=== PATIENT | male | born 1940 | race Caucasian/White ===

== ENCOUNTER 2019-11-16 10:14 | Inpatient (IN) | payer OTHER, SELFPAY ==
[2019-11-16 10:15] VITALS: BP 136/67; PULSE 85; RESP 17; TEMP 36.8; O2SAT 96; BMI 28.7
--- NOTE | 2019-11-16 10:35 | XR_ITS ---
WS: [id number] PORTABLE CHEST HISTORY: cough/congestion COMPARISON: 12/08/2018 Subsegmental linear atelectasis in the RIGHT lower lobe. Slight volume loss in the RIGHT lung. Blunti ng of the RIGHT costophrenic angle is stable. LEFT lung is clear. Normal vasculature. No pleural effu josiah or pneumothorax. Cardiac size: Normal. Mediastinum/Aorta: Mild atherosclerosis aorta. No osseous abnormality seen. Prior median sternotomy. XR/XR chest 1V portable [id number] IMPRESSION: Subsegmental RIGHT lower lobe atelectasis.
--- NOTE | 2019-11-16 10:35 | CT_ITS ---
WS: [id number] CT HEAD NONCONTRAST HISTORY: trauma TECHNIQUE: Contiguous axial imaging performed through the brain in 2.5 mm imaging. Bone and soft tiss ue windows. Sagittal and coronal reformats reviewed. All CT scans at [facility] use at ast one of these dose optimization techniques: automated exposure control; mA and/or kV adjustment pe r patient size (includes targeted exams where dose is matched to clinical indication); or iterative r econstruction. DLP: 920.86 mGy.cm COMPARISON: 11/06/2018 No acute intracranial hemorrhage, midline shift or mass effect. Mild atrophy and mild chronic microvascular ischemic disease. Ventricles: Normal size with no hydrocephalus. No inferior displacement of cerebellar tonsils. Paranasal sinuses: As visualized are clear. Mastoid air cells: Well pneumatized. Calvarium and scalp: Skull is intact with no soft tissue edema or swelling. CT/CT head wo con* [id number] IMPRESSION: 1. No acute intracranial hemorrhage. 2. Mild atrophy and chronic microvascular ischemic disease. 3. No fracture.
--- NOTE | 2019-11-16 10:35 | W.ED.WEAKNES ---
Documented by User: ANNE Cummings 11/16/19 16:31 HPI - Weakness General: Chief complaint: Fever Stated complaint: WEAKNESS, ELEVATED TEMP Time Seen by Provider: 11/16/19 10:35 Source: patient and EMS Mode of arrival: EMS Limitations: no limitations History of Present Illness: HPI Narrative: Patient is an 78-year-old male who presents to ED today via EMS after family noticed increased weakness over the past week or so. They told EMS patient has had several falls over the past week. They also noted fevers however stated the maximum temp that patient had was 99.9. Upon arrival patient is pleasant. He is alert and oriented to name, , location, president. He does however seem to elicit some dementia-like symptoms often forgetting certain words. He overall has no physical complaints currently. He denies chest pains, difficulty breathing, shortness of breath. He states he is not getting dizzy or lightheaded prior to the falls. He tells me his past medical history consists of high blood pressure and a cardiac valve replacement. He cannot list his current medications. Spoke to son later during his visit who states he does have POA of patient. He states at 4:30am when he checked on him he seemed normal but then got a phone call later that day from home health stating patient was confused and talking out of his mind Associated symptoms: Reports fever(s) (family reports this; max temp 99.9); Denies chest pain, chills, dysuria, headache(s), nausea, syncope or vomiting Review of Systems General: Reports: 10 or more systems reviewed and unremarkable except in HPI and below Const: Reports: fever (family reports this; max temp 99.9); Denies: chills, body aches, fatigue, malaise or night sweats Eyes: Denies: change in vision, blurry vision or photophobia ENMT: Denies: painful swallowing Card: Denies: chest pain, palpitations, irregular heart rhythm, edema, swelling of feet/ankles, lightheadedness, syncope, pre-syncope, shortness of breath on exertion, shortness of breath when lying down or leg pain with exertion Resp: Denies: shortness of breath, productive cough, non-productive cough, pain on inspiration, coughing up blood or chest congestion GI: Denies: abdominal pain, nausea, vomiting or diarrhea : Denies: flank pain, difficulty urinating, painful urination, urinary frequency, urinary urgency or urinary hesitancy Musc: Denies: neck pain, back pain, extremity pain, extremity swelling, joint pain or joint swelling Skin/Breast: Denies: rash Neuro: Reports: difficulty walking (secondary to weakness ); Denies: headache, numbness in extremities, weakness in extremities, changes in sensation or dizziness PFSH ED PFSH: Medical History Aortic valve stenosis BPH (benign prostatic hyperplasia) CAD (coronary artery disease) Diastolic CHF HTN (hypertension) Surgical History Aortic valve replaced bovine History of appendectomy Family History (Updated 11/16/19 @ 16:48 by Jeanne Leung MD) Other CAD (coronary artery disease) Social History (Updated 11/16/19 @ 16:49 by Jeanne Leung MD) Smoking and tobacco status: never smoked Alcohol intake: never Substance/Drug Use: never Marital status: / Number of children: 3 service: Yes Physical Exam Const: COMMON NORMALS: no apparent distress, average body habitus, oriented x3, healthy appearing, alert and well nourished EXAM LIMITATIONS: altered mental status (maybe some mild dementia) ORIENTATION/CONSCIOUSNESS: Yes oriented to person, Yes oriented to place and Yes oriented to time HENMT: COMMON NORMALS: normocephalic, head/scalp atraumatic and EAC's normal HEAD & SCALP: normocephalic and atraumatic EXTERNAL AUDITORY CANAL: EAC's normal THROAT: posterior oropharynx normal Eye: COMMON NORMALS: PERRL, EOMs intact bilaterally and conjunctivae normal CONJUNCTIVA: Yes conjunctivae normal PUPIL: Yes PERRL Neck/C-Spine: COMMON NORMALS: full ROM, no lymphadenopathy and no meningeal signs Resp: COMMON NORMALS: normal respiratory effort and clear to auscultation bilaterally AUSCULTATION: clear to auscultation bilaterally Cardio: COMMON NORMALS: regular rate and regular rhythm RATE: regular rate RHYTHM: regular rhythm HEART SOUNDS: murmur GI: COMMON NORMALS: normal to inspection, nondistended, normoactive bowel sounds, soft to palpation, non-tender, no hepatosplenomegaly and no masses PALPATION: Yes soft and Yes no hepatosplenomegaly : COMMON NORMALS: Yes no CVA tenderness BLADDER/KIDNEY EXAM: Yes no CVA tenderness Back/Pelvis: COMMON NORMALS: no CVA tenderness, thoracic and lumbar spine normal to inspection and no thoracic nor lumbar tenderness Extremity: COMMON NORMALS: normal to inspection and full ROM OTHER: mild bilateral abrasions to anterior knees that he states is from falling and trying to get up Neuro: [place] COMA SCALE: document GCS findings [place] coma scale eye opening: Spontaneous [place] coma scale verbal response: Orientated [place] coma scale motor response: Obey commands [place] coma scale total score: 15 COMMON NORMALS: oriented x3, moves all extremities, no focal motor deficits and no sensory deficits noted SENSORIUM/ORIENTATION: Yes alert, Yes oriented to person, Yes oriented to place and Yes oriented to time MENINGEAL SIGNS: Yes no meningeal signs Skin: COMMON NORMALS: no rashes or lesions noted GENERAL SKIN EXAM: no rashes or lesions noted Course Vital Signs: Vital signs: Vital Signs Temperature 98.2 F 11/18/19 04:00 Pulse Rate 94 11/18/19 04:00 Respiratory Rate 18 11/18/19 04:00 Blood Pressure 126/78 11/18/19 04:00 Pulse Oximetry 96 11/18/19 04:00 MDM - Weakness MDM Narrative: Medical decision making narrative: Patient here with recurrent falls, generalized weakness, and altered mental status. Patient lives alone with home health for a few hours daily. Son who is pts POA would like pt admitted as he does not feel he is safe to be alone-I agree. I think pt is a significant fall risk. Will speak to Dr. Nicole and we will try to get patient admitted to hospital for further evaluation. Lab Data: Labs: Lab Results 11/16/19 11/16/19 11/16/19 Range/Units 10:49 10:49 10:49 WBC 7.9 (4.0-10.0) 10^3/ uL RBC 4.84 (4.1-5.3) 10^6/u L Hgb 13.2 (11.7-16.6) g/dL Hct 41.4 L (42.0-52.0) % MCV 85.5 (80-94) fL MCH 27.3 L (28.0-34.0) pg MCHC 31.9 (30.0-36.0) g/dL RDW 14.8 (12.1-15.1) % Plt Count 152 (130-400) 10^3/c mm MPV 10.3 (7.4-10.4) fL Neut % (Auto) 73.3 % Lymph % (Auto) 15.3 % [place] % (Auto) 7.1 % Eos % (Auto) 2.9 % Baso % (Auto) 0.9 % Neut # (Auto) 5.8 (1.8-7.7) 10^3/u L Lymph # (Auto) 1.2 (0.8-4.8) 10^3/u L [place] # (Auto) 0.6 (0.2-0.9) 10^3/u L Eos # (Auto) 0.2 (0.0-0.8) 10^3/u L Baso # (Auto) 0.1 (0.0-0.1) 10^3/u L Nucleated RBC % (a uto) 0 % Nucleated RBCs # 0.0 /100WBC PT (10.5-13.3) SECO NDS INR (0.8-1.2) APTT (23.9-36.7) SECO NDS Sodium 137 (136-145) mmol/L Potassium 3.5 (3.5-5.1) mmol/L Chloride 102 (98-107) mmol/L Carbon Dioxide 24 (22-29) mmol/L Anion Gap 14.5 (5-19) BUN 12 (8-23) mg/dL Creatinine 1.2 (0.7-1.2) mg/dL Glucose 102 (65-115) mg/dL Calculated Osmolal ity 280 L (285-295) mOsm/k g Lactate 1.6 (0.5-2.2) mmol/L Calcium 9.4 (8.5-10.5) mg/dL Total Bilirubin 0.6 (0.15-1.2) mg/dL AST 26 (0-40) U/L ALT 18 (0-41) U/L Alkaline Phosphata se 86 (40-130) IU/L Troponin I 6 Hour (0-15) ng/mL Troponin I Hi Sens Del (0-12) ng/L Troponin T Baselin e (0-15) ng/mL Troponin T 120 Min josué (0-15) ng/mL Delta Troponin T (0-10) ABS# Total Protein 6.7 (6.6-8.7) g/dL Albumin 4.0 (3.5-5.2) g/dL Globulin 2.7 (1.3-4.6) g/dL Urine Color (Yellow) Urine Appearance (CLEAR) Urine pH (5-7) Ur Specific Gravit y (1.005-1.030) Urine Protein (Negative) Urine Glucose (UA) (Normal) Urine Ketones (Negative) Urine Blood (Negative) Urine Nitrate (Negative) Urine Bilirubin (NEGATIVE) Prot Sulfosalicyli c Acd (Negative) Urine Urobilinogen (Negative) mg/dL Ur Leukocyte Adriana ase (Negative) 11/16/19 11/16/19 11/16/19 Range/Units 10:49 10:49 11:56 WBC (4.0-10.0) 10^3/ uL RBC (4.1-5.3) 10^6/u L Hgb (11.7-16.6) g/dL Hct (42.0-52.0) % MCV (80-94) fL MCH (28.0-34.0) pg MCHC (30.0-36.0) g/dL RDW (12.1-15.1) % Plt Count (130-400) 10^3/c mm MPV (7.4-10.4) fL Neut % (Auto) % Lymph % (Auto) % [place] % (Auto) % Eos % (Auto) % Baso % (Auto) % Neut # (Auto) (1.8-7.7) 10^3/u L Lymph # (Auto) (0.8-4.8) 10^3/u L [place] # (Auto) (0.2-0.9) 10^3/u L Eos # (Auto) (0.0-0.8) 10^3/u L Baso # (Auto) (0.0-0.1) 10^3/u L Nucleated RBC % (a uto) % Nucleated RBCs # /100WBC PT 14.40 H (10.5-13.3) SECO NDS INR 1.08 (0.8-1.2) APTT 37.4 H (23.9-36.7) SECO NDS Sodium (136-145) mmol/L Potassium (3.5-5.1) mmol/L Chloride (98-107) mmol/L Carbon Dioxide (22-29) mmol/L Anion Gap (5-19) BUN (8-23) mg/dL Creatinine (0.7-1.2) mg/dL Glucose (65-115) mg/dL Calculated Osmolal ity (285-295) mOsm/k g Lactate (0.5-2.2) mmol/L Calcium (8.5-10.5) mg/dL Total Bilirubin (0.15-1.2) mg/dL AST (0-40) U/L ALT (0-41) U/L Alkaline Phosphata se (40-130) IU/L Troponin I 6 Hour (0-15) ng/mL Troponin I Hi Sens Del (0-12) ng/L Troponin T Baselin e 16 H (0-15) ng/mL Troponin T 120 Min josué (0-15) ng/mL Delta Troponin T (0-10) ABS# Total Protein (6.6-8.7) g/dL Albumin (3.5-5.2) g/dL Globulin (1.3-4.6) g/dL Urine Color Yellow (Yellow) Urine Appearance Clear (CLEAR) Urine pH 8 H (5-7) Ur Specific Gravit y 1.010 (1.005-1.030) Urine Protein Neg (Negative) Urine Glucose (UA) Norm (Normal) Urine Ketones Negative (Negative) Urine Blood Neg (Negative) Urine Nitrate Negative (Negative) Urine Bilirubin Neg (NEGATIVE) Prot Sulfosalicyli c Acd Negative (Negative) Urine Urobilinogen Norm (Negative) mg/dL Ur Leukocyte Adriana ase Negative (Negative) 11/16/19 11/16/19 Range/Units 12:52 16:41 WBC (4.0-10.0) 10^3/ uL RBC (4.1-5.3) 10^6/u L Hgb (11.7-16.6) g/dL Hct (42.0-52.0) % MCV (80-94) fL MCH (28.0-34.0) pg MCHC (30.0-36.0) g/dL RDW (12.1-15.1) % Plt Count (130-400) 10^3/c mm MPV (7.4-10.4) fL Neut % (Auto) % Lymph % (Auto) % [place] % (Auto) % Eos % (Auto) % Baso % (Auto) % Neut # (Auto) (1.8-7.7) 10^3/u L Lymph # (Auto) (0.8-4.8) 10^3/u L [place] # (Auto) (0.2-0.9) 10^3/u L Eos # (Auto) (0.0-0.8) 10^3/u L Baso # (Auto) (0.0-0.1) 10^3/u L Nucleated RBC % (a uto) % Nucleated RBCs # /100WBC PT (10.5-13.3) SECO NDS INR (0.8-1.2) APTT (23.9-36.7) SECO NDS Sodium (136-145) mmol/L Potassium (3.5-5.1) mmol/L Chloride (98-107) mmol/L Carbon Dioxide (22-29) mmol/L Anion Gap (5-19) BUN (8-23) mg/dL Creatinine (0.7-1.2) mg/dL Glucose (65-115) mg/dL Calculated Osmolal ity (285-295) mOsm/k g Lactate (0.5-2.2) mmol/L Calcium (8.5-10.5) mg/dL Total Bilirubin (0.15-1.2) mg/dL AST (0-40) U/L ALT (0-41) U/L Alkaline Phosphata se (40-130) IU/L Troponin I 6 Hour 21.88 H (0-15) ng/mL Troponin I Hi Sens Del 5.88 (0-12) ng/L Troponin T Baselin e (0-15) ng/mL Troponin T 120 Min josué 18.93 H (0-15) ng/mL Delta Troponin T 2.93 (0-10) ABS# Total Protein (6.6-8.7) g/dL Albumin (3.5-5.2) g/dL Globulin (1.3-4.6) g/dL Urine Color (Yellow) Urine Appearance (CLEAR) Urine pH (5-7) Ur Specific Gravit y (1.005-1.030) Urine Protein (Negative) Urine Glucose (UA) (Normal) Urine Ketones (Negative) Urine Blood (Negative) Urine Nitrate (Negative) Urine Bilirubin (NEGATIVE) Prot Sulfosalicyli c Acd (Negative) Urine Urobilinogen (Negative) mg/dL Ur Leukocyte Adriana ase (Negative) Imaging Data^: CXR: Radiologist's impression: [place] [address] XRay Report Signed Patient: Pablo Lorenzana Unit #: [id number] : 1940 Age/Sex: 78 / M ADM Date: 11/16/19 Loc: ER Room/Bed: Attending Dr: Ordering Provider/Ordering MD: Carmen Roper Date of Service: 11/16/19 Procedure(s): XR chest 1V portable [id number] Accession Number(s): [id number] Report Number: [id number] WS: [id number] PORTABLE CHEST HISTORY: cough/congestion COMPARISON: 12/08/2018 Subsegmental linear atelectasis in the RIGHT lower lobe. Slight volume loss in the RIGHT lung. Blunting of the RIGHT costophrenic angle is stable. LEFT lung is clear. Normal vasculature. No pleural effusion or pneumothorax. Cardiac size: Normal. Mediastinum/Aorta: Mild atherosclerosis aorta. No osseous abnormality seen. Prior median sternotomy. XR/XR chest 1V portable [id number] IMPRESSION: Subsegmental RIGHT lower lobe atelectasis. Dictated By: Elizabeth Sanchez DO Signed By: Elizabeth Sanchez DO Signed Date/Time: 11/16/19 1105 DD/ 1104 CT Head: Radiologist's impression: [place] [address] CT Scan Report Signed Patient: Pablo Lorenzana Unit #: [id number] : 1940 Age/Sex: 78 / M ADM Date: 11/16/19 Loc: ER Room/Bed: Attending Dr: Ordering Provider/Ordering MD: Carmen Roper Date of Service: 11/16/19 Procedure(s): CT head wo con* [id number] Accession Number(s): [id number] Report Number: [id number] WS: [id number] CT HEAD NONCONTRAST HISTORY: trauma TECHNIQUE: Contiguous axial imaging performed through the brain in 2.5 mm imaging. Bone and soft tissue windows. Sagittal and coronal reformats reviewed. All CT scans at [facility] use at least one of these dose optimization techniques: automated exposure control; mA and/or kV adjustment per patient size (includes targeted exams where dose is matched to clinical indication); or iterative reconstruction. DLP: 920.86 mGy.cm COMPARISON: 11/06/2018 No acute intracranial hemorrhage, midline shift or mass effect. Mild atrophy and mild chronic microvascular ischemic disease. Ventricles: Normal size with no hydrocephalus. No inferior displacement of cerebellar tonsils. Paranasal sinuses: As visualized are clear. Mastoid air cells: Well pneumatized. Calvarium and scalp: Skull is intact with no soft tissue edema or swelling. CT/CT head wo con* [id number] IMPRESSION: 1. No acute intracranial hemorrhage. 2. Mild atrophy and chronic microvascular ischemic disease. 3. No fracture. Dictated By: Elizabeth Sanchez DO Signed By: Elizabeth Sanchez DO Signed Date/Time: 11/16/19 1138 DD/ 1128 Discharge Plan Discharge Patient Disposition: Admitted As Inpatient Admit Provider: Jeanne Leung Clinical Impression: Frequent falls, Generalized weakness Altered mental status Qualifiers: Altered mental status type: unspecified Qualified Code(s): R41.82 - Altered mental status, unspecified Condition: Stable Discharge Date/Time: 11/16/19 18:19 Coding Level of Care Code ED Medicaid Service Coordinator for [facility] Fwd Exam Comprehensive Documented by User: Enoc Nicole DO 11/18/19 06:37 HPI - Weakness General: Chief complaint: Fever Stated complaint: WEAKNESS, ELEVATED TEMP Time Seen by Provider: 11/16/19 10:35 PFSH ED PFSH: Medical History Aortic valve stenosis BPH (benign prostatic hyperplasia) CAD (coronary artery disease) Diastolic CHF HTN (hypertension) Surgical History Aortic valve replaced bovine History of appendectomy Family History (Updated 11/16/19 @ 16:48 by Jeanne Leung MD) Other CAD (coronary artery disease) Social History (Updated 11/16/19 @ 16:49 by Jeanne Leung MD) Smoking and tobacco status: never smoked Alcohol intake: never Substance/Drug Use: never Marital status: / Number of children: 3 service: Yes Physical Exam Const: COMMON NORMALS: no apparent distress GENERAL APPEARANCE: cooperative and comfortable ORIENTATION/CONSCIOUSNESS: Yes confused (mild) HENMT: COMMON NORMALS: normocephalic, head/scalp atraumatic, hearing grossly normal bilaterally, external ears normal, EAC's normal, TM's normal bilaterally, nasal mucous membranes and turbinates normal, moist oral mucous membranes and oropharynx normal HEAD & SCALP: normocephalic and atraumatic NOSE: nasal mucous membranes and turbinates normal EXTERNAL EAR: Yes external ears normal EXTERNAL AUDITORY CANAL: EAC's normal TYMPANIC MEMBRANE: TM's normal bilaterally Eye: COMMON NORMALS: PERRL, EOMs intact bilaterally, conjunctivae normal and no scleral icterus CONJUNCTIVA: Yes conjunctivae normal PUPIL: Yes PERRL Neck/C-Spine: COMMON NORMALS: full ROM, no lymphadenopathy, supple and no JVD Lymph: LYMPHATIC: no lymphadenopathy noted and no lymphedema noted Resp: COMMON NORMALS: normal respiratory effort, no retractions, no use of accessory muscles and clear to auscultation bilaterally AUSCULTATION: clear to auscultation bilaterally Cardio: COMMON NORMALS: no JVD, regular rate, regular rhythm and no murmurs RATE: regular rate RHYTHM: regular rhythm GI: COMMON NORMALS: soft to palpation and no hepatosplenomegaly AUSCULTATION: Yes normoactive bowel sounds PALPATION: Yes soft, No tender, No guarding and Yes no hepatosplenomegaly Extremity: COMMON NORMALS: normal to inspection, normal capillary refill, no clubbing, cyanosis or edema, no calf tenderness and no pedal edema Skin: COMMON NORMALS: no rashes or lesions noted GENERAL SKIN EXAM: no rashes or lesions noted Course Vital Signs: Vital signs: Vital Signs Temperature 98.2 F 11/18/19 04:00 Pulse Rate 94 11/18/19 04:00 Respiratory Rate 18 11/18/19 04:00 Blood Pressure 126/78 11/18/19 04:00 Pulse Oximetry 96 11/18/19 04:00 MDM - Weakness MDM Narrative: Medical decision making narrative: Reviewed case with ANNE Cummings. Will place with hospitalist service for evaluation for altered mental status on observation.. Lab Data: Labs: Lab Results 11/16/19 11/16/19 11/16/19 Range/Units 10:49 10:49 10:49 WBC 7.9 (4.0-10.0) 10^3/ uL RBC 4.84 (4.1-5.3) 10^6/u L Hgb 13.2 (11.7-16.6) g/dL Hct 41.4 L (42.0-52.0) % MCV 85.5 (80-94) fL MCH 27.3 L (28.0-34.0) pg MCHC 31.9 (30.0-36.0) g/dL RDW 14.8 (12.1-15.1) % Plt Count 152 (130-400) 10^3/c mm MPV 10.3 (7.4-10.4) fL Neut % (Auto) 73.3 % Lymph % (Auto) 15.3 % [place] % (Auto) 7.1 % Eos % (Auto) 2.9 % Baso % (Auto) 0.9 % Neut # (Auto) 5.8 (1.8-7.7) 10^3/u L Lymph # (Auto) 1.2 (0.8-4.8) 10^3/u L [place] # (Auto) 0.6 (0.2-0.9) 10^3/u L Eos # (Auto) 0.2 (0.0-0.8) 10^3/u L Baso # (Auto) 0.1 (0.0-0.1) 10^3/u L Nucleated RBC % (a uto) 0 % Nucleated RBCs # 0.0 /100WBC PT (10.5-13.3) SECO NDS INR (0.8-1.2) APTT (23.9-36.7) SECO NDS Sodium 137 (136-145) mmol/L Potassium 3.5 (3.5-5.1) mmol/L Chloride 102 (98-107) mmol/L Carbon Dioxide 24 (22-29) mmol/L Anion Gap 14.5 (5-19) BUN 12 (8-23) mg/dL Creatinine 1.2 (0.7-1.2) mg/dL Glucose 102 (65-115) mg/dL Calculated Osmolal ity 280 L (285-295) mOsm/k g Lactate 1.6 (0.5-2.2) mmol/L Calcium 9.4 (8.5-10.5) mg/dL Total Bilirubin 0.6 (0.15-1.2) mg/dL AST 26 (0-40) U/L ALT 18 (0-41) U/L Alkaline Phosphata se 86 (40-130) IU/L Troponin I 6 Hour (0-15) ng/mL Troponin I Hi Sens Del (0-12) ng/L Troponin T Baselin e (0-15) ng/mL Troponin T 120 Min josué (0-15) ng/mL Delta Troponin T (0-10) ABS# Total Protein 6.7 (6.6-8.7) g/dL Albumin 4.0 (3.5-5.2) g/dL Globulin 2.7 (1.3-4.6) g/dL Urine Color (Yellow) Urine Appearance (CLEAR) Urine pH (5-7) Ur Specific Gravit y (1.005-1.030) Urine Protein (Negative) Urine Glucose (UA) (Normal) Urine Ketones (Negative) Urine Blood (Negative) Urine Nitrate (Negative) Urine Bilirubin (NEGATIVE) Prot Sulfosalicyli c Acd (Negative) Urine Urobilinogen (Negative) mg/dL Ur Leukocyte Adriana ase (Negative) 11/16/19 11/16/19 11/16/19 Range/Units 10:49 10:49 11:56 WBC (4.0-10.0) 10^3/ uL RBC (4.1-5.3) 10^6/u L Hgb (11.7-16.6) g/dL Hct (42.0-52.0) % MCV (80-94) fL MCH (28.0-34.0) pg MCHC (30.0-36.0) g/dL RDW (12.1-15.1) % Plt Count (130-400) 10^3/c mm MPV (7.4-10.4) fL Neut % (Auto) % Lymph % (Auto) % [place] % (Auto) % Eos % (Auto) % Baso % (Auto) % Neut # (Auto) (1.8-7.7) 10^3/u L Lymph # (Auto) (0.8-4.8) 10^3/u L [place] # (Auto) (0.2-0.9) 10^3/u L Eos # (Auto) (0.0-0.8) 10^3/u L Baso # (Auto) (0.0-0.1) 10^3/u L Nucleated RBC % (a uto) % Nucleated RBCs # /100WBC PT 14.40 H (10.5-13.3) SECO NDS INR 1.08 (0.8-1.2) APTT 37.4 H (23.9-36.7) SECO NDS Sodium (136-145) mmol/L Potassium (3.5-5.1) mmol/L Chloride (98-107) mmol/L Carbon Dioxide (22-29) mmol/L Anion Gap (5-19) BUN (8-23) mg/dL Creatinine (0.7-1.2) mg/dL Glucose (65-115) mg/dL Calculated Osmolal ity (285-295) mOsm/k g Lactate (0.5-2.2) mmol/L Calcium (8.5-10.5) mg/dL Total Bilirubin (0.15-1.2) mg/dL AST (0-40) U/L ALT (0-41) U/L Alkaline Phosphata se (40-130) IU/L Troponin I 6 Hour (0-15) ng/mL Troponin I Hi Sens Del (0-12) ng/L Troponin T Baselin e 16 H (0-15) ng/mL Troponin T 120 Min josué (0-15) ng/mL Delta Troponin T (0-10) ABS# Total Protein (6.6-8.7) g/dL Albumin (3.5-5.2) g/dL Globulin (1.3-4.6) g/dL Urine Color Yellow (Yellow) Urine Appearance Clear (CLEAR) Urine pH 8 H (5-7) Ur Specific Gravit y 1.010 (1.005-1.030) Urine Protein Neg (Negative) Urine Glucose (UA) Norm (Normal) Urine Ketones Negative (Negative) Urine Blood Neg (Negative) Urine Nitrate Negative (Negative) Urine Bilirubin Neg (NEGATIVE) Prot Sulfosalicyli c Acd Negative (Negative) Urine Urobilinogen Norm (Negative) mg/dL Ur Leukocyte Adriana ase Negative (Negative) 11/16/19 11/16/19 Range/Units 12:52 16:41 WBC (4.0-10.0) 10^3/ uL RBC (4.1-5.3) 10^6/u L Hgb (11.7-16.6) g/dL Hct (42.0-52.0) % MCV (80-94) fL MCH (28.0-34.0) pg MCHC (30.0-36.0) g/dL RDW (12.1-15.1) % Plt Count (130-400) 10^3/c mm MPV (7.4-10.4) fL Neut % (Auto) % Lymph % (Auto) % [place] % (Auto) % Eos % (Auto) % Baso % (Auto) % Neut # (Auto) (1.8-7.7) 10^3/u L Lymph # (Auto) (0.8-4.8) 10^3/u L [place] # (Auto) (0.2-0.9) 10^3/u L Eos # (Auto) (0.0-0.8) 10^3/u L Baso # (Auto) (0.0-0.1) 10^3/u L Nucleated RBC % (a uto) % Nucleated RBCs # /100WBC PT (10.5-13.3) SECO NDS INR (0.8-1.2) APTT (23.9-36.7) SECO NDS Sodium (136-145) mmol/L Potassium (3.5-5.1) mmol/L Chloride (98-107) mmol/L Carbon Dioxide (22-29) mmol/L Anion Gap (5-19) BUN (8-23) mg/dL Creatinine (0.7-1.2) mg/dL Glucose (65-115) mg/dL Calculated Osmolal ity (285-295) mOsm/k g Lactate (0.5-2.2) mmol/L Calcium (8.5-10.5) mg/dL Total Bilirubin (0.15-1.2) mg/dL AST (0-40) U/L ALT (0-41) U/L Alkaline Phosphata se (40-130) IU/L Troponin I 6 Hour 21.88 H (0-15) ng/mL Troponin I Hi Sens Del 5.88 (0-12) ng/L Troponin T Baselin e (0-15) ng/mL Troponin T 120 Min josué 18.93 H (0-15) ng/mL Delta Troponin T 2.93 (0-10) ABS# Total Protein (6.6-8.7) g/dL Albumin (3.5-5.2) g/dL Globulin (1.3-4.6) g/dL Urine Color (Yellow) Urine Appearance (CLEAR) Urine pH (5-7) Ur Specific Gravit y (1.005-1.030) Urine Protein (Negative) Urine Glucose (UA) (Normal) Urine Ketones (Negative) Urine Blood (Negative) Urine Nitrate (Negative) Urine Bilirubin (NEGATIVE) Prot Sulfosalicyli c Acd (Negative) Urine Urobilinogen (Negative) mg/dL Ur Leukocyte Adriana ase (Negative) Discharge Plan Discharge Patient Disposition: Admitted As Inpatient Admit Provider: Jeanne Leung Clinical Impression: Frequent falls, Generalized weakness Altered mental status Qualifiers: Altered mental status type: unspecified Qualified Code(s): R41.82 - Altered mental status, unspecified Condition: Stable Discharge Date/Time: 11/16/19 18:19 Coding Level of Care Code ED Medicaid Service Coordinator for [facility] Fwd Exam Comprehensive
--- NOTE | 2019-11-16 10:36 | ECG_ITS ---
Measurements Intervals [place] Rate: 84 P: 22 [place]: 198 QRS: 13 QRSD: 104 T: 0 QT: 351 QTc: 416 SINUS RHYTHM INFERIOR MYOCARDIAL INFARCTION , PROBABLY OLD [40+ ms Q WAVE AND/OR ST/T AB ABNORMALITY IN II/aVF] Compared to ECG 12/08/2018 11:33:03 No significant changes Electronically Signed On 11-16-2019 19:06:45 CDT by Yolis Hartman M.D. [id number] f
[2019-11-16 10:57] LABS: Basophils # 0.1 10^3/uL (0.0-0.1); Basophils % 0.9 %; Eosinophils # 0.2 10^3/uL (0.0-0.8); Eosinophils % 2.9 %; Hematocrit 41.4 % (42.0-52.0); Hemoglobin 13.2 g/dL (11.7-16.6); Lymphocytes # 1.2 10^3/uL (0.8-4.8); Lymphocytes % 15.3 %; Mean Corpuscular HGB Conc 31.9 g/dL (30.0-36.0); Mean Corpuscular Hemoglobin 27.3 pg (28.0-34.0); Mean Corpuscular Volume 85.5 fL (80-94); Mean Platelet Volume 10.3 fL (7.4-10.4); Monocytes # 0.6 10^3/uL (0.2-0.9); Monocytes % 7.1 %; Neutrophils # 5.8 10^3/uL (1.8-7.7); Neutrophils % 73.3 %; Nucleated Red Blood Cells % 0 %; Platelet Count 152 10^3/cmm (130-400); Red Blood Count 4.84 10^6/uL (4.1-5.3); Red Cell Distribution Width 14.8 % (12.1-15.1); White Blood Count 7.9 10^3/uL (4.0-10.0)
--- NOTE | 2019-11-16 11:08 | PC.NURSE ---
patient to ct
[2019-11-16 11:10] LABS: INR 1.08 (0.8-1.2)
[2019-11-16 11:11] LABS: Partial Thromboplastin Time 37.4 SECONDS (23.9-36.7)
[2019-11-16 11:14] LABS: Lactate (Lactic Acid level) 1.6 mmol/L (0.5-2.2)
[2019-11-16 11:15] LABS: Alanine Aminotransferase 18 U/L (0-41); Alkaline Phosphatase 86 IU/L (40-130); Anion Gap 14.5 (5-19); Aspartate Amino Transferase 26 U/L (0-40); Blood Urea Nitrogen 12 mg/dL (8-23); Calcium 9.4 mg/dL (8.5-10.5); Carbon Dioxide 24 mmol/L (22-29); Chloride 102 mmol/L (98-107); Globulin 2.7 g/dL (1.3-4.6); Glucose 102 mg/dL (65-115); Osmolality Calculated 280 mOsm/kg (285-295); Potassium 3.5 mmol/L (3.5-5.1); Sodium 137 mmol/L (136-145); Total Bilirubin 0.6 mg/dL (0.15-1.2); Total Protein 6.7 g/dL (6.6-8.7)
[2019-11-16 11:16] LABS: Troponin(5th) Baseline 16 ng/mL (0-15)
[2019-11-16 12:21] LABS: Add Urine Microscopic? NO
--- NOTE | 2019-11-16 12:36 | ECG_ITS ---
Measurements Intervals [place] Rate: 76 P: 56 [place]: 201 QRS: 62 QRSD: 109 T: 12 QT: 370 QTc: [address] & T-WAVE ABNORMALITY Compared to ECG 12/08/2018 11:33:03 T-wave abnormality now present Myocardial infarct finding no longer present Electronically Signed On 11-16-2019 19:09:11 CDT by Yolis Hartman M.D. [id number]
[2019-11-16 12:50] LABS: Bilirubin Urine Neg (NEGATIVE); Blood Urine Neg (Negative); Glucose Urine UA Norm (Normal); Ketones Urine Negative (Negative); Leukocyte Esterase Urine Negative (Negative); Nitrate Urine Negative (Negative); Protein Urine Neg (Negative); Sulfosalicylic Acid Urine Negative (Negative); Urine Appearance Clear (CLEAR); Urine Color Yellow (Yellow); Urobilinogen Urine Norm (Negative); pH Urine 8 (5-7)
[2019-11-16 13:21] LABS: Troponin 5 2HR 18.93 ng/mL (0-15); Troponin 5 2HR Delta 2.93 ABS# (0-10)
--- NOTE | 2019-11-16 16:36 | ECG_ITS ---
Measurements Intervals [place] Rate: 73 P: 6 MS: 200 QRS: 12 QRSD: 106 T: 0 QT: 375 QTc: 415 SINUS RHYTHM INFERIOR MYOCARDIAL INFARCTION , PROBABLY OLD [40+ ms Q WAVE AND/OR ST/T ABNORMALITY IN II/aVF] Compared to ECG 12/08/2018 11:33:03 No significant changes Electronically Signed On 11-16-2019 19:09:21 CDT by Yolis Hartman M.D. [id number]
--- NOTE | 2019-11-16 16:42 | PM.HP ---
Providers/Chief Complaint Admitting Physician: Dr. Jeanne Leung Primary Care Provider: Dr. Haim Wong Chief Complaint: generalized weakness, recurrent fall History of Present Illness Pablo Lorenzana is a 78 year old male with PMHx of HTN, BPH, CAD, aortic valve replacement; presents from home via EMS for evaluation of ongoing and worsening generalized weakness, recurrent falls and intermittent episodes of altered mental status for the past several days. History obtained from patient who is encountered in the ER with collateral information obtained from review of medical record as well as verbal conversation with patient's son Ti. Son states that patient who lives alone has had gradually worsening generalized weakness and has progressively required use of assistive device, initially was using a cane and now even with a walker has difficulty ambulating in the house. He has had to assist his father to get up off the floor several times including twice earlier today due to recurrent falls and loss of balance. Patient describes his episodes as feeling weak, legs giving out on him or losing his balance. He denies any preceding chest pain, shortness of breath, vision changes and so far has not had any head trauma. He has a body joiner who comes to the house every day and cooks and cleans for him. Per son, he had a very bizarre conversation with body joiner this AM. He is able to drive for very short distances locally and is otherwise essentially homebound particularly in the winter due to the weather. Patient had a very similar episode of this approximately a year ago when he was admitted to our facility, I was involved in his care at that time and he ended up being discharged to [facility] where per his own admission he did well and following 3 weeks of intensive therapy was able to be discharged home independently. He is well aware that he has been declining in terms of his ability to take care of himself and is agreeable to SNF placement with a preference for [facility] since he has been there in the past. Work-up done in the ER so far has been unremarkable including CBC, chemistry, lactate, urinalysis, chest x-ray, CT of the head. Troponins are very mildly elevated with a noted delta of 2.9 after 2 hours. He had significant difficulty ambulating to the bathroom in the ER even with maximum assistance and use of a walker; he is being admitted for further evaluation and appropriate disposition. Son is DPOA. Review of Systems Const: Reports: fever (per patient, though afebrile here); Denies: chills or change in appetite Eyes: Denies: change in vision ENMT: Denies: painful swallowing Card: Denies: chest pain, swelling of feet/ankles or lightheadedness Resp: Denies: shortness of breath GI: Denies: abdominal pain, nausea, vomiting or blood in stool : Denies: difficulty urinating, painful urination or urinary frequency Musc: Denies: back pain Skin/Breast: Denies: rash Neuro: Reports: weakness in extremities and frequent falls; Denies: numbness in extremities Psych: Denies: anxiety Medications/Allergies Home Medications Medication Instructions Recorded Confirmed Last Taken Type Lactobacillus acidophilus 1 cell PO DAILY 11/16/19 11/16/19 Unknown History [Probiotic] albuterol sulfate 1 inh INHALATION QID PRN 11/16/19 11/16/19 Unknown History amlodipine 5 mg PO DAILY 11/16/19 11/16/19 11/15/19 History cholecalciferol (vitamin D3) 25 mcg PO DAILY 11/16/19 11/16/19 11/15/19 History [Vitamin D3] donepezil 5 mg PO DAILY 11/16/19 11/16/19 11/15/19 History fluocinonide 1 applic TOPICAL BID 11/16/19 11/16/19 11/15/19 History furosemide [Lasix] 20 mg PO DAILY 11/16/19 11/16/19 11/15/19 History multivitamin 1 tab PO DAILY 11/16/19 11/16/19 11/15/19 History omega 5-[id number]-[id number]-fish oil [Fish Oil] 1 cap PO BID 11/16/19 11/16/19 Unknown History omeprazole 20 mg PO DAILY 11/16/19 11/16/19 11/15/19 History potassium chloride 20 meq PO DAILY 11/16/19 11/16/19 11/15/19 History pregabalin [Lyrica] 75 mg PO BID 11/16/19 11/16/19 11/15/19 History tamsulosin [Flomax] 0.4 mg PO DAILY 11/16/19 11/16/19 11/15/19 History Allergies Allergy/AdvReac Type Severity Reaction Status Date / Time Penicillins Allergy ALGY-Rash Verified 04/15/20 10:21 Sulfa (Sulfonamide Allergy ALGY-Rash Verified 11/16/19 10:21 Antibiotics) metronidazole AdvReac ALGY-Rash Verified 11/16/19 16:40 PFSH Acute PFSH: Medical History Aortic valve stenosis BPH (benign prostatic hyperplasia) CAD (coronary artery disease) Diastolic CHF HTN (hypertension) Surgical History Aortic valve replaced bovine History of appendectomy Family History (Updated 11/16/19 @ 16:48 by Jeanne Leung MD) Other CAD (coronary artery disease) Social History (Updated 11/16/19 @ 16:49 by Jeanne Leung MD) Smoking and tobacco status: never smoked Alcohol intake: never Substance/Drug Use: never Marital status: / Number of children: 3 service: Yes Vitals/I&O/Wt Last Vital Signs Temp 98.3 F 11/16/19 10:15 Pulse 85 11/16/19 10:15 Resp 17 11/16/19 10:15 BP 136/67 11/16/19 10:15 Pulse Ox 96 11/16/19 10:15 Weight last 48 hrs Weight 90.718 kg Physical Exam Const: COMMON NORMALS: no apparent distress, oriented x3 and alert GENERAL APPEARANCE: cooperative and comfortable NUTRITIONAL APPEARANCE: overweight ORIENTATION/CONSCIOUSNESS: Yes awake OTHER: -looks appropriate for age HENMT: COMMON NORMALS: normocephalic, head/scalp atraumatic and moist oral mucous membranes HEAD & SCALP: normocephalic and atraumatic GENERAL EAR: hearing grossly impaired Laterality: bilateral Eye: COMMON NORMALS: PERRL, EOMs intact bilaterally and conjunctivae normal CONJUNCTIVA: Yes conjunctivae normal PUPIL: Yes PERRL Neck/C-Spine: COMMON NORMALS: full ROM GENERAL: Yes normal visual inspection and Yes trachea midline Chest: COMMONS NORMALS: inspection of chest normal Resp: COMMON NORMALS: normal respiratory effort, no retractions, no use of accessory muscles and clear to auscultation bilaterally EFFORT & INSPECTION: Yes able to speak in complete sentences, Yes symmetric chest movement and No tachypneic AUSCULTATION: clear to auscultation bilaterally Cardio: COMMON NORMALS: regular rate, regular rhythm, S1 normal heart sound and S2 normal heart sound RATE: regular rate RHYTHM: regular rhythm HEART SOUNDS: S1 normal, S2 normal and click GI: COMMON NORMALS: normal to inspection, nondistended, normoactive bowel sounds, soft to palpation and non-tender INSPECTION: Yes central obesity PALPATION: Yes soft Extremity: COMMON NORMALS: normal to inspection, full ROM, no clubbing, cyanosis or edema and no pedal edema Neuro: COMMON NORMALS: oriented x3, moves all extremities, no focal motor deficits and no sensory deficits noted GAIT: Yes other (gait assessment deferred) Psych: COMMON NORMALS: mental status grossly normal, thought process normal, cooperative, affect normal and speech normal SPEECH: Yes normal speech THOUGHT PROCESS: normal thought process Skin: COMMON NORMALS: no rashes or lesions noted, no jaundice, no petechiae and no mottling GENERAL SKIN EXAM: no rashes or lesions noted Data : 11/16/19 10:49 11/16/19 10:49 Micro: Microbiology 11/16/19 10:49 Blood Culture - Preliminary Blood SPECIMEN COLLECTED 11/16/19 10:40 Blood Culture - Preliminary Blood SPECIMEN COLLECTED A&P Assessment and plan (1) Generalized weakness: -presented with generalized weakness particularly over the past several days with associated multiple falls -has had issues with this in the past -no infectious etiology currently, does not appear dehydrated, not anemic -has been on lasix, amlodipine, lyrica, flomax, donepezil which could contribute to orthostasis and dizziness; hold antihypertensives, BP currently wnl -check orthostatics -monitor vital signs closely -fall precautions -quite unsteady and weak in ED, PT/OT evaluations -bedrest with BSC for now -CT head unremarkable for acute findings -UA negative, no leukocytosis, lactate wnl -electrolytes wnl -troponins slightly elevated after 2 hrs, 6hr troponin pending. No chest pain -telemetry monitoring -has known hx of peripheral neuropathy; has been on lyrica -has had prior CVA and noted mild Parkinsonism; may need to consider worsening Parkinsonism Status: Acute (2) Frequent falls: -as noted above Status: Acute (3) HTN (hypertension): -BP wnl currently -in light of generalized weakness and recurrent falls, will hold oral antihypertensives for now -monitor vital signs Status: Chronic Qualifiers: Hypertension type: essential hypertension Qualified Code(s): I10 - Essential (primary) hypertension (4) BPH (benign prostatic hyperplasia): -resume flomax Status: Chronic Qualifiers: Lower urinary tract symptom presence: unspecified whether lower urinary tract symptoms present Qualified Code(s): N40.0 - Benign prostatic hyperplasia without lower urinary tract symptoms (5) CAD (coronary artery disease): -has known hx of CAD Status: Chronic Qualifiers: Coronary Disease-Associated Artery/Lesion type: unspecified vessel or lesion type [place] vs. transplanted heart: [place] heart Associated angina: angina presence unspecified Qualified Code(s): I25.10 - Atherosclerotic heart disease of [place] coronary artery without angina pectoris (6) Diastolic CHF: -chronic diastolic CHF; no acute exacerbation -Echo (2016): EF=76%, G2DD, trace MR, trace to mild TR -hold lasix Status: Chronic Qualifiers: Heart failure chronicity: chronic Qualified Code(s): I50.32 - Chronic diastolic (congestive) heart failure Additional A&P Information -Advanced age -hx of aortic stenosis s/p bovine valve replacement -cardiac diet as tolerated -GI ppx with PPI -DVT ppx with Lovenox -Dispo: with hx of recurrent falls, worsening generalized weakness and living alone, he is not safe to return home on d/c. He is agreeable to SNF placement and prefers [facility] as he has been there previously (11/2018) -Code status: DNR/DNI; discussed with son Attestations Medical Necessity Statement*: Pablo Lorenzana's hospital stay will require greater than 2 midnights for management of generalized weakness, recurrent falls. Time Spent in Patient Care: Greater than 35 minutes (>than 50% of time spent in counselling and/or direct pt care on unit). Coding Level of Care Code Acute Clam Bed Laborer for Chg Fwd Diagnoses Generalized weakness R53.1 Frequent falls R29.6 HTN (hypertension) I10 Hypertension type: essential hypertension BPH (benign prostatic hyperplasia) N40.0 Lower urinary tract symptom presence: unspecified whether lower urinary tract symptoms present CAD (coronary artery disease) I25.10 Coronary Disease-Associated Artery/Lesion type: unspecified vessel or lesion type [place] vs. transplanted heart: [place] heart Associated angina: angina presence unspecified Diastolic CHF I50.32 Heart failure chronicity: chronic
[2019-11-16 17:27] LABS: Troponin 5 6HR 21.88 ng/mL (0-15); Troponin 5 6HR Delta 5.88 ng/L (0-12)
[2019-11-16 17:48] VITALS: BP 138/49; PULSE 82; RESP 20; TEMP 36.9; O2SAT 95
[2019-11-16 18:25] VITALS: BP 160/75; PULSE 85; RESP 18; TEMP 36.9; O2SAT 91
[2019-11-16 18:28] VITALS: BP 132/62; BP 132/67; BP 169/72
[2019-11-16 20:00] VITALS: BP 139/67; BP 160/75; PULSE 78; PULSE 85; RESP 18; RESP 20; TEMP 36.9; O2SAT 94
[2019-11-16] MEDS: enoxaparin 40 mg/0.4 mL Syringe SUBCUT (20:25)
[2019-11-16 23:32] VITALS: BP 139/67; PULSE 78; RESP 20; TEMP 36.9
[2019-11-17] VITALS (7 sets, daily range): BP systolic 132–145; BP diastolic 68–81; PULSE 71–87; RESP 18–24; TEMP 36.7–37; O2SAT 93–96
[2019-11-17] MEDS: multivitamin therapeutic Tablet 1 TAB PO (08:43)
[2019-11-17] MEDS: donepezil 5 MG Tablet PO (08:43)
[2019-11-17] MEDS: pantoprazole DR 40 mg Tablet PO (08:43)
[2019-11-17] MEDS: tamsulosin 0.4 mg Capsule PO (08:43)
--- NOTE | 2019-11-17 10:33 | PM.PN ---
Subjective Subjective: Interval history: Had 900 mL urine output overnight. VSS. Patient seen and examined, resting in bed, had some difficulty this morning when he got stuck in the bathroom, will move him closer to nurse's station. Reviewed with PT and OT following their respective evaluations. Medications: Reviewed: Yes Medication Review Details: Active Medications Generic Name Dose Route Start Last Admin Trade Name Freq PRN Reason Stop Dose Admin Acetaminophen 650 mg 11/16/19 18:28 Tylenol PO Q6H PRN Mild/Mod Pain Or Temp >/= 101 Hydrocodone Bitart /Acetaminophen 1 tab 11/16/19 18:28 [place] 5-325 Mg PO Q4H PRN MODERATE TO SEVER E PAIN Donepezil HCl 5 mg 11/17/19 09:00 11/17/19 08:43 Aricept PO 5 mg DAILY FROYLAN Administration Enoxaparin Sodium 40 mg 11/16/19 18:28 11/16/19 20:25 Lovenox SUBCUT 40 mg Q24H FROYLAN Administration Morphine Sulfate 2 mg 11/16/19 18:28 Morphine IVP Q4H PRN SEVERE PAIN Multivitamins Ther apeutic 1 tab 11/17/19 09:00 11/17/19 08:43 Multivitamin Tab PO 1 tab DAILY FROYLAN Administration Non-Formulary Medi cation 25 mcg 11/17/19 09:00 11/17/19 08:32 Cholecalciferol (Vitamin D3) [[place]ili min D3] PO Not Given DAILY FROYLAN Non-Formulary Medi cation 1 cell 11/17/19 09:00 11/17/19 08:35 Lactobacillus Ac idophilus [Probiot ic] PO Not Given DAILY FROYLAN Ondansetron HCl 4 mg 11/16/19 18:28 Zofran IVP Q6H PRN vomiting, or N/V if npo Pantoprazole [place]od[place] m 40 mg 11/17/19 09:00 11/17/19 08:43 Protonix PO 40 mg DAILY FROYLAN Administration Tamsulosin HCl 0.4 mg 11/17/19 09:00 11/17/19 08:43 Flomax PO 0.4 mg DAILY FROYLAN Administration Penicillins Allergy (Verified 11/16/19 10:21) ALGY-Rash Sulfa (Sulfonamide Antibiotics) Allergy (Verified 11/16/19 10:21) ALGY-Rash metronidazole Adverse Reaction (Verified 11/16/19 16:40) ALGY-Rash Vitals/I&O/Wt Last Vital Signs Temp 98.6 F 11/17/19 07:42 Pulse 87 11/17/19 10:21 Resp 18 11/17/19 07:42 BP 138/68 11/17/19 07:42 Pulse Ox 94 11/17/19 10:21 11/16/19 11/17/19 11/17/19 22:59 06:59 14:59 Intake Total 320 / 320 Output Total 250 / 250 650 / 900 Balance -250 / -250 -650 / -900 320 / 320 Weight last 48 hrs Weight 93.758 kg Weight 90.718 kg Physical Exam Const: COMMON NORMALS: no apparent distress, oriented x3 and alert GENERAL APPEARANCE: cooperative and comfortable NUTRITIONAL APPEARANCE: overweight ORIENTATION/CONSCIOUSNESS: Yes awake OTHER: -looks appropriate for age HENMT: COMMON NORMALS: normocephalic, head/scalp atraumatic and moist oral mucous membranes HEAD & SCALP: normocephalic and atraumatic GENERAL EAR: hearing grossly impaired Laterality: bilateral Eye: COMMON NORMALS: PERRL, EOMs intact bilaterally and conjunctivae normal CONJUNCTIVA: Yes conjunctivae normal PUPIL: Yes PERRL Neck/C-Spine: COMMON NORMALS: full ROM GENERAL: Yes normal visual inspection and Yes trachea midline Chest: COMMONS NORMALS: inspection of chest normal Resp: COMMON NORMALS: normal respiratory effort, no retractions, no use of accessory muscles and clear to auscultation bilaterally EFFORT & INSPECTION: Yes able to speak in complete sentences, Yes symmetric chest movement and No tachypneic AUSCULTATION: clear to auscultation bilaterally Cardio: COMMON NORMALS: regular rate, regular rhythm, S1 normal heart sound and S2 normal heart sound RATE: regular rate RHYTHM: regular rhythm HEART SOUNDS: S1 normal, S2 normal and click GI: COMMON NORMALS: normal to inspection, nondistended, normoactive bowel sounds, soft to palpation and non-tender INSPECTION: Yes central obesity PALPATION: Yes soft Extremity: COMMON NORMALS: normal to inspection, full ROM, no clubbing, cyanosis or edema and no pedal edema Neuro: COMMON NORMALS: oriented x3, moves all extremities, no focal motor deficits and no sensory deficits noted SENSORIUM/ORIENTATION: Yes alert Psych: COMMON NORMALS: mental status grossly normal, thought process normal, cooperative, affect normal and speech normal SPEECH: Yes normal speech THOUGHT PROCESS: normal thought process Skin: COMMON NORMALS: no rashes or lesions noted, no jaundice, no petechiae and no mottling GENERAL SKIN EXAM: no rashes or lesions noted Data : 11/16/19 10:49 11/16/19 10:49 Micro: Microbiology 11/16/19 10:49 Blood Culture - Preliminary Blood SPECIMEN COLLECTED 11/16/19 10:40 Blood Culture - Preliminary Blood SPECIMEN COLLECTED A&P Assessment and plan (1) Generalized weakness: -presented with generalized weakness particularly over the past several days with associated multiple falls -has had issues with this in the past -no infectious etiology currently, does not appear dehydrated, not anemic -has been on lasix, amlodipine, lyrica, flomax, donepezil which could contribute to orthostasis and dizziness; hold antihypertensives, BP currently wnl -orthostatics negative -VSS: continue to monitor -fall precautions -quite unsteady and weak in ED, PT/OT evaluations -up with assist -CT head unremarkable for acute findings -UA negative, no leukocytosis, lactate wnl -electrolytes wnl -troponins slightly elevated but no significant delta noted. No chest pain -telemetry monitoring -has known hx of peripheral neuropathy; has been on lyrica -has had prior CVA and noted mild Parkinsonism; may need to consider worsening Parkinsonism Status: Acute (2) Frequent falls: -as noted above Status: Acute (3) HTN (hypertension): -BP wnl currently -in light of generalized weakness and recurrent falls, will resume low dose Amlodipine -VSS: continue to monitor vital signs Status: Chronic Qualifiers: Hypertension type: essential hypertension Qualified Code(s): I10 - Essential (primary) hypertension (4) BPH (benign prostatic hyperplasia): -continue flomax Status: Chronic Qualifiers: Lower urinary tract symptom presence: unspecified whether lower urinary tract symptoms present Qualified Code(s): N40.0 - Benign prostatic hyperplasia without lower urinary tract symptoms (5) CAD (coronary artery disease): -has known hx of CAD Status: Chronic Qualifiers: Associated angina: angina presence unspecified Coronary Disease-Associated Artery/Lesion type: unspecified vessel or lesion type [place] vs. transplanted heart: [place] heart Qualified Code(s): I25.10 - Atherosclerotic heart disease of [place] coronary artery without angina pectoris (6) Diastolic CHF: -chronic diastolic CHF; no acute exacerbation -Echo (2016): EF=76%, G2DD, trace MR, trace to mild TR -hold lasix Status: Chronic Qualifiers: Heart failure chronicity: chronic Qualified Code(s): I50.32 - Chronic diastolic (congestive) heart failure Additional A&P Information -Advanced age -hx of aortic stenosis s/p bovine valve replacement -cardiac diet as tolerated -GI ppx with PPI -DVT ppx with Lovenox -Dispo: with hx of recurrent falls, worsening generalized weakness and living alone, he is not safe to return home on d/c. He is agreeable to SNF placement and prefers [facility] [place] as he has been there previously (11/2018) -Code status: DNR/DNI; discussed with son Attestations Medical Necessity Statement*: Patient requires hospitalization for continued management of generalized weakness, pending therapy evaluations and appropriate disposition. Time Spent in Patient Care: 16 - 35 minutes (>than 50% of time spent in counselling and/or direct pt care on unit). Coding Level of Care Code Acute Wind Plant Manager for Chg Fwd Exam Comprehensive Diagnoses Generalized weakness R53.1 Frequent falls R29.6 HTN (hypertension) I10 Hypertension type: essential hypertension BPH (benign prostatic hyperplasia) N40.0 Lower urinary tract symptom presence: unspecified whether lower urinary tract symptoms present CAD (coronary artery disease) I25.10 Associated angina: angina presence unspecified Coronary Disease-Associated Artery/Lesion type: unspecified vessel or lesion type [place] vs. transplanted heart: [place] heart Diastolic CHF I50.32 Heart failure chronicity: chronic
[2019-11-17] MEDS: enoxaparin 40 mg/0.4 mL Syringe SUBCUT (21:51)
[2019-11-18] VITALS: BP 131/72; PULSE 96; RESP 18; TEMP 36.6; O2SAT 95
[2019-11-18 04:00] VITALS: BP 126/78; PULSE 94; RESP 18; TEMP 36.8; O2SAT 96
[2019-11-18 07:17] VITALS: BP 111/69; PULSE 74; RESP 18; TEMP 36.4; O2SAT 94
[2019-11-18] MEDS: donepezil 5 MG Tablet PO (09:20)
[2019-11-18] MEDS: pantoprazole DR 40 mg Tablet PO (09:20)
[2019-11-18] MEDS: multivitamin therapeutic Tablet 1 TAB PO (09:21)
[2019-11-18] MEDS: amlodipine 5 mg Tablet 2.5 MG PO (09:21)
[2019-11-18] MEDS: tamsulosin 0.4 mg Capsule PO (09:21)
[2019-11-18 12:00] VITALS: BP 118/64; PULSE 80; RESP 18; TEMP 36.9; O2SAT 94
--- NOTE | 2019-11-18 15:43 | PM.PN ---
Subjective Subjective: Interval history: Patient seen and examined, resting in bed, in good spirits, waiting on transfer to [place] likely tomorrow. Had 900 mL urine output overnight. We discussed CODE STATUS and patient states that if there is a chance for quality of life he would like to be resuscitated so CODE STATUS changed to full code. Medications: Reviewed: Yes Medication Review Details: Active Medications Generic Name Dose Route Start Last Admin Trade Name Freq PRN Reason Stop Dose Admin Acetaminophen 650 mg 11/16/19 18:28 Tylenol PO Q6H PRN Mild/Mod Pain Or Temp >/= 101 Hydrocodone Bitart /Acetaminophen 1 tab 11/16/19 18:28 [place] 5-325 Mg PO Q4H PRN MODERATE TO SEVER E PAIN Amlodipine Besylat e 2.5 mg 11/18/19 09:00 11/18/19 09:21 Norvasc PO 2.5 mg DAILY FROYLAN Administration Donepezil HCl 5 mg 11/17/19 09:00 11/18/19 09:20 Aricept PO 5 mg DAILY FROYLAN Administration Enoxaparin Sodium 40 mg 11/16/19 18:28 11/17/19 21:51 Lovenox SUBCUT 40 mg Q24H FROYLAN Administration Lanolin 1 applic 11/18/19 13:19 Lanolin Oint TOPICAL PRN PRN DRYNESS Morphine Sulfate 2 mg 11/16/19 18:28 Morphine IVP Q4H PRN SEVERE PAIN Multivitamins Ther apeutic 1 tab 11/17/19 09:00 11/18/19 09:21 Multivitamin Tab PO 1 tab DAILY FROYLAN Administration Non-Formulary Medi cation 25 mcg 11/17/19 09:00 11/18/19 09:22 Cholecalciferol (Vitamin D3) [Emili min D3] PO Not Given DAILY FROYLAN Non-Formulary Medi cation 1 cell 11/17/19 09:00 11/18/19 09:23 Lactobacillus Ac idophilus [Probiot ic] PO Not Given DAILY FROYLAN Ondansetron HCl 4 mg 11/16/19 18:28 Zofran IVP Q6H PRN vomiting, or N/V if npo Pantoprazole Sodiu m 40 mg 11/17/19 09:00 11/18/19 09:20 Protonix PO 40 mg DAILY FROYLAN Administration Tamsulosin HCl 0.4 mg 11/17/19 09:00 11/18/19 09:21 Flomax PO 0.4 mg DAILY FROYLAN Administration Penicillins Allergy (Verified 11/16/19 10:21) ALGY-Rash Sulfa (Sulfonamide Antibiotics) Allergy (Verified 11/16/19 10:21) ALGY-Rash metronidazole Adverse Reaction (Verified 11/16/19 16:40) ALGY-Rash Vitals/I&O/Wt Last Vital Signs Temp 98.5 F 11/18/19 12:00 Pulse 80 11/18/19 12:00 Resp 18 11/18/19 12:00 BP 118/64 11/18/19 12:00 Pulse Ox 94 11/18/19 12:00 11/18/19 11/18/19 11/18/19 06:59 14:59 22:59 Intake Total 240 / 240 Output Total 900 / 1100 Balance -900 / -540 240 / 240 Weight last 48 hrs Weight 93.304 kg Weight 93.758 kg Physical Exam Const: COMMON NORMALS: no apparent distress, oriented x3 and alert GENERAL APPEARANCE: cooperative and comfortable NUTRITIONAL APPEARANCE: overweight ORIENTATION/CONSCIOUSNESS: Yes awake OTHER: -looks appropriate for age HENMT: COMMON NORMALS: normocephalic, head/scalp atraumatic and moist oral mucous membranes HEAD & SCALP: normocephalic and atraumatic GENERAL EAR: hearing grossly impaired Laterality: bilateral Eye: COMMON NORMALS: PERRL, EOMs intact bilaterally and conjunctivae normal CONJUNCTIVA: Yes conjunctivae normal PUPIL: Yes PERRL Neck/C-Spine: COMMON NORMALS: full ROM GENERAL: Yes normal visual inspection and Yes trachea midline Chest: COMMONS NORMALS: inspection of chest normal Resp: COMMON NORMALS: normal respiratory effort, no retractions, no use of accessory muscles and clear to auscultation bilaterally EFFORT & INSPECTION: Yes able to speak in complete sentences, Yes symmetric chest movement and No tachypneic AUSCULTATION: clear to auscultation bilaterally Cardio: COMMON NORMALS: regular rate, regular rhythm, S1 normal heart sound and S2 normal heart sound RATE: regular rate RHYTHM: regular rhythm HEART SOUNDS: S1 normal, S2 normal and click GI: COMMON NORMALS: normal to inspection, nondistended, normoactive bowel sounds, soft to palpation and non-tender INSPECTION: Yes central obesity PALPATION: Yes soft Extremity: COMMON NORMALS: normal to inspection, full ROM, no clubbing, cyanosis or edema and no pedal edema Neuro: COMMON NORMALS: oriented x3, moves all extremities, no focal motor deficits and no sensory deficits noted SENSORIUM/ORIENTATION: Yes alert GAIT: Yes other (gait assessment deferred) Psych: COMMON NORMALS: mental status grossly normal, thought process normal, cooperative, affect normal and speech normal SPEECH: Yes normal speech THOUGHT PROCESS: normal thought process Skin: COMMON NORMALS: no rashes or lesions noted, no jaundice, no petechiae and no mottling GENERAL SKIN EXAM: no rashes or lesions noted Data : 11/16/19 10:49 11/16/19 10:49 Micro: Microbiology 11/16/19 10:49 Blood Culture - Preliminary Blood NEGATIVE TO DATE 11/16/19 10:40 Blood Culture - Preliminary Blood NEGATIVE TO DATE A&P Assessment and plan (1) Generalized weakness: -presented with generalized weakness particularly over the past several days with associated multiple falls -has had issues with this in the past -no infectious etiology currently, does not appear dehydrated, not anemic -has been on lasix, amlodipine, lyrica, flomax, donepezil which could contribute to orthostasis and dizziness; hold antihypertensives, BP currently wnl -orthostatics negative -VSS: continue to monitor -fall precautions -quite unsteady and weak in ED, PT/OT evaluations appreciated -up with assist -CT head unremarkable for acute findings -UA negative, no leukocytosis, lactate wnl -electrolytes wnl -troponins slightly elevated but no significant delta noted. No chest pain -telemetry monitoring -has known hx of peripheral neuropathy; has been on lyrica -has had prior CVA and noted mild Parkinsonism; may need to consider worsening Parkinsonism Status: Acute (2) Frequent falls: -as noted above Status: Acute (3) HTN (hypertension): -BP wnl currently -in light of generalized weakness and recurrent falls, will resume low dose Amlodipine -VSS: continue to monitor vital signs Status: Chronic Qualifiers: Hypertension type: essential hypertension Qualified Code(s): I10 - Essential (primary) hypertension (4) BPH (benign prostatic hyperplasia): -continue flomax Status: Chronic Qualifiers: Lower urinary tract symptom presence: unspecified whether lower urinary tract symptoms present Qualified Code(s): N40.0 - Benign prostatic hyperplasia without lower urinary tract symptoms (5) CAD (coronary artery disease): -has known hx of CAD Status: Chronic Qualifiers: Associated angina: angina presence unspecified Coronary Disease-Associated Artery/Lesion type: unspecified vessel or lesion type [place] vs. transplanted heart: [place] heart Qualified Code(s): I25.10 - Atherosclerotic heart disease of [place] coronary artery without angina pectoris (6) Diastolic CHF: -chronic diastolic CHF; no acute exacerbation -Echo (2016): EF=76%, G2DD, trace MR, trace to mild TR -hold lasix Status: Chronic Qualifiers: Heart failure chronicity: chronic Qualified Code(s): I50.32 - Chronic diastolic (congestive) heart failure Additional A&P Information -Advanced age -hx of aortic stenosis s/p bovine valve replacement -cardiac diet as tolerated -GI ppx with PPI -DVT ppx with Lovenox -Dispo: with hx of recurrent falls, worsening generalized weakness and living alone, he is not safe to return home on d/c. He is agreeable to SNF placement and prefers [facility] as he has been there previously (11/2018). Anticipate discharge tomorrow -Code status: DNR/DNI; discussed with son Attestations Medical Necessity Statement*: Patient requires hospitalization pending appropriate disposition. Time Spent in Patient Care: 16 - 35 minutes (>than 50% of time spent in counselling and/or direct pt care on unit). Coding Level of Care Code Acute Kennel Aide for g Fwd Exam Comprehensive Diagnoses Generalized weakness R53.1 Frequent falls R29.6 HTN (hypertension) I10 Hypertension type: essential hypertension BPH (benign prostatic hyperplasia) N40.0 Lower urinary tract symptom presence: unspecified whether lower urinary tract symptoms present CAD (coronary artery disease) I25.10 Associated angina: angina presence unspecified Coronary Disease-Associated Artery/Lesion type: unspecified vessel or lesion type [place] vs. transplanted heart: [place] heart Diastolic CHF I50.32 Heart failure chronicity: chronic
[2019-11-18 15:53] VITALS: BP 142/62; PULSE 73; RESP 18; TEMP 36.6; O2SAT 95
[2019-11-18 19:43] VITALS: BP 127/73; PULSE 76; RESP 18; TEMP 36.5; O2SAT 95
[2019-11-19] VITALS: BP 145/74; PULSE 73; RESP 18; TEMP 36.7; O2SAT 96
[2019-11-19 03:36] VITALS: BP 173/80; PULSE 82; RESP 18; TEMP 36.4; O2SAT 97
[2019-11-19 07:53] VITALS: BP 102/69; PULSE 81; RESP 18; TEMP 37.1; O2SAT 94
--- NOTE | 2019-11-19 08:07 | PM.DCS ---
Discharge Providers Date of Admission: 11/16/19 17:16 Date of Discharge: November 19, 2019 Attending Provider at Admission: Jeanne Leung MD Attending Provider at Discharge: Jeanne Leung MD Primary Care Provider: Dr. Haim Wong Diagnoses at Discharge Discharge Diagnosis (1) Generalized weakness: Status: Acute Problem details: -presented with generalized weakness particularly over the past several days with associated multiple falls -has had issues with this in the past -no infectious etiology currently, does not appear dehydrated, not anemic -has been on lasix, amlodipine, lyrica, flomax, donepezil which could contribute to orthostasis and dizziness; hold antihypertensives, BP currently wnl -orthostatics negative -VSS: continue to monitor -fall precautions -quite unsteady and weak in ED, PT/OT evaluations appreciated -up with assist -CT head unremarkable for acute findings -UA negative, no leukocytosis, lactate wnl -electrolytes wnl -troponins slightly elevated but no significant delta noted. No chest pain -telemetry monitoring -has known hx of peripheral neuropathy; has been on lyrica -has had prior CVA and noted mild Parkinsonism; may need to consider worsening Parkinsonism (2) Frequent falls: Status: Acute Problem details: -as noted above (3) HTN (hypertension): Status: Chronic Problem details: -BP wnl currently -in light of generalized weakness and recurrent falls, will resume low dose Amlodipine -VSS: continue to monitor vital signs Qualifiers: Hypertension type: essential hypertension Qualified Code(s): I10 - Essential (primary) hypertension (4) BPH (benign prostatic hyperplasia): Status: Chronic Problem details: -continue flomax Qualifiers: Lower urinary tract symptom presence: unspecified whether lower urinary tract symptoms present Qualified Code(s): N40.0 - Benign prostatic hyperplasia without lower urinary tract symptoms (5) CAD (coronary artery disease): Status: Chronic Problem details: -has known hx of CAD Qualifiers: Associated angina: angina presence unspecified Coronary Disease-Associated Artery/Lesion type: unspecified vessel or lesion type [place] vs. transplanted heart: [place] heart Qualified Code(s): I25.10 - Atherosclerotic heart disease of [place] coronary artery without angina pectoris (6) Diastolic CHF: Status: Chronic Problem details: -chronic diastolic CHF; no acute exacerbation -Echo (2016): EF=76%, G2DD, trace MR, trace to mild TR -hold lasix Qualifiers: Heart failure chronicity: chronic Qualified Code(s): I50.32 - Chronic diastolic (congestive) heart failure Other Information Additional DC diagnoses/information: -Advanced age -hx of aortic stenosis s/p bovine valve replacement Reason for Visit Reason for Visit: Reason For Visit: generalized weakness, recurrent fall Hospital Course Hospital Course: Patient was admitted to the medical surgical floor and placed on telemetry monitoring. He was found to be quite orthostatic in the ER so his oral antihypertensive regimen was held to prevent further hypotension. Once blood pressure had improved, gradually resumed his blood pressure medication with exception of diuretics. He has been evaluated by physical and occupational therapy with recommendation made for SNF which patient was agreeable to. Patient has likely underlying and progressing dementia which makes it difficult for him to manage on his own at home. As well with time he has become physically deconditioned putting him at high fall risk already pre-existing risk of advanced age. Once accepted at [facility] which was his first choice he was discharged there for continued therapy. He has participated well with therapy while in the hospital and anticipate that he has good potential for improved function. He is to follow-up with his primary care provider per SNF or within 1 week. He is to continue fall precautions on his transition to SNF. Discharge Summary: -Patient to follow-up with primary care physician within 1 week or per SNF Physical Exam Const: COMMON NORMALS: no apparent distress, oriented x3 and alert GENERAL APPEARANCE: cooperative and comfortable NUTRITIONAL APPEARANCE: overweight ORIENTATION/CONSCIOUSNESS: Yes awake OTHER: -looks appropriate for age HENMT: COMMON NORMALS: normocephalic, head/scalp atraumatic and moist oral mucous membranes HEAD & SCALP: normocephalic and atraumatic GENERAL EAR: hearing grossly impaired Laterality: bilateral Eye: COMMON NORMALS: PERRL, EOMs intact bilaterally and conjunctivae normal CONJUNCTIVA: Yes conjunctivae normal PUPIL: Yes PERRL Neck/C-Spine: COMMON NORMALS: full ROM GENERAL: Yes normal visual inspection and Yes trachea midline Chest: COMMONS NORMALS: inspection of chest normal Resp: COMMON NORMALS: normal respiratory effort, no retractions, no use of accessory muscles and clear to auscultation bilaterally EFFORT & INSPECTION: Yes able to speak in complete sentences, Yes symmetric chest movement and No tachypneic AUSCULTATION: clear to auscultation bilaterally Cardio: COMMON NORMALS: regular rate, regular rhythm, S1 normal heart sound and S2 normal heart sound RATE: regular rate RHYTHM: regular rhythm HEART SOUNDS: S1 normal, S2 normal and click GI: COMMON NORMALS: normal to inspection, nondistended, normoactive bowel sounds, soft to palpation and non-tender INSPECTION: Yes central obesity PALPATION: Yes soft Extremity: COMMON NORMALS: normal to inspection, full ROM, no clubbing, cyanosis or edema and no pedal edema Neuro: COMMON NORMALS: oriented x3, moves all extremities, no focal motor deficits and no sensory deficits noted SENSORIUM/ORIENTATION: Yes alert GAIT: Yes other (gait assessment deferred) Psych: COMMON NORMALS: mental status grossly normal, thought process normal, cooperative, affect normal and speech normal SPEECH: Yes normal speech THOUGHT PROCESS: normal thought process Skin: COMMON NORMALS: no rashes or lesions noted, no jaundice, no petechiae and no mottling GENERAL SKIN EXAM: no rashes or lesions noted Discharge Data Data Completed and Pending: Completed Studies During Hospitalization Category Date Time Status CT head wo con* 7 0450 Urgent Cat Scan 11/16/19 10:35 Completed XR chest 1V naldo ble [id number] Urgent Exams 11/16/19 10:35 Completed Pending at discharge Category Date Time Status Blood Culture Sta t Lab 11/16/19 10:49 Results Vitals: Last Vital Signs Temp 98.8 F 11/19/19 07:53 Pulse 81 11/19/19 07:53 Resp 18 11/19/19 07:53 BP 102/69 11/19/19 07:53 Pulse Ox 94 11/19/19 07:53 Discharge Plan Discharge Patient Disposition: Xfer SNF Condition: Stable Prescriptions: New Thera 400 mcg Tablet 1 tab PO DAILY Qty: 30 RF: 0 Continued donepezil 5 mg Tablet 5 mg PO DAILY Qty: 30 RF: 0 amlodipine 5 mg Tablet 5 mg PO DAILY Qty: 30 RF: 0 potassium chloride 20 mEq/15 mL Liquid 20 meq PO DAILY Qty: 1 RF: 0 Flomax 0.4 mg Capsule 0.4 mg PO DAILY Qty: 30 RF: 0 omeprazole 20 mg Capsule,Delayed Release(Dr/Ec) 20 mg PO DAILY Qty: 30 RF: 0 albuterol sulfate 90 mcg/actuation Hfa Aerosol Inhaler 1 inh INHALATION QID PRN (Reason: Shortness Of Breath) Qty: 1 RF: 0 fluocinonide 0.05 % Cream 1 applic TOPICAL BID Qty: 15 RF: 0 Vitamin D3 25 mcg (1,000 unit) Capsule 25 mcg PO DAILY Qty: 30 RF: 0 Lyrica 75 mg Capsule 75 mg PO BID 30 Days Qty: 60 RF: 0 Fish Oil 1,000 mg (120 mg-180 mg) Capsule 1 cap PO BID 30 Days Qty: 60 RF: 0 Probiotic 10 billion cell Capsule 1 cell PO DAILY Qty: 30 RF: 0 Discontinued multivitamin Tablet 1 tab PO DAILY RF: 0 Lasix 20 mg Tablet 20 mg PO DAILY RF: 0 Discharge Orders: Discharge Order (Routine); Ordered 11/19/19 Ordered By: Jeanne Leung Referrals: Haim Wong [Family Provider] - Discharge Diet: Low Salt Discharge Activity: Use walker/crutches as instructed and As per PT/OT instructions Activity Restrictions/Additional Instructions: -Patient is at continued fall risk so needs fall precautions Discharge Attestations Time Spent in Discharge Care*: greater than 30 min Specific Discharge Activities: Specific discharge activities: educating patient, discussing with registered nurse hh case manager/social workers/dc planners, documenting/other paperwork and evaluating patient/reviewing data Status at Discharge: Cognitive status at discharge: cognitively intact, Behavioral status at discharge: cooperative, Functional status at discharge: uses cane/walker Overall status at discharge: patient is back to baseline Quality Metrics Clinical Quality Measures During this hospital stay, did patient experience: None Coding Level of Care Code Acute Tow Motor Mechanic for g Fwd Exam Comprehensive Diagnoses Generalized weakness R53.1 Frequent falls R29.6 HTN (hypertension) I10 Hypertension type: essential hypertension BPH (benign prostatic hyperplasia) N40.0 Lower urinary tract symptom presence: unspecified whether lower urinary tract symptoms present CAD (coronary artery disease) I25.10 Associated angina: angina presence unspecified Coronary Disease-Associated Artery/Lesion type: unspecified vessel or lesion type [place] vs. transplanted heart: [place] heart Diastolic CHF I50.32 Heart failure chronicity: chronic
[2019-11-19] MEDS: multivitamin therapeutic Tablet 1 TAB PO (09:08)
[2019-11-19] MEDS: tamsulosin 0.4 mg Capsule PO (09:08)
[2019-11-19] MEDS: pregabalin 75 mg Capsule PO (09:08)
[2019-11-19] MEDS: donepezil 5 MG Tablet PO (09:08)
[2019-11-19] MEDS: pantoprazole DR 40 mg Tablet PO (09:08)
[2019-11-19] MEDS: amlodipine 5 mg Tablet PO (09:08)
--- NOTE | 2019-11-19 09:29 | PC.NURSE ---
Report called to Rain NEGRETE at [facility] at this time. Patient's son will pick patient up and take him to [facility].
--- NOTE | 2019-11-19 09:38 | PC.SOCIAL ---
*IMM* Important message from Medicare gave to patient, signed and placed in chart, copy gave to patient.
[2019-11-19 10:13] VITALS: BP 102/69; PULSE 81; RESP 18; TEMP 37.1; O2SAT 94
--- NOTE | 2019-11-19 10:15 | PC.NURSE ---
Pt will go to [facility], taken by family, alert and oriented x3, respirations even and nonlabored, IV removed, intact, Pt tolerated well, left via wheelchair,
== END 2019-11-19 10:17 | disposition skilled nursing facility (03) | DRG 948 ==
LOC: ER 16:17 → MEDSURG 17:16
PROVIDERS: Physician Assistant; Admitting Provider Family Medicine; Emergency Provider Family Medicine; Family Provider Internal Medicine; Visit Provider Family Medicine
DX: R53.1 Weakness (principal); I50.32 Chronic diastolic (congestive) heart failure; I11.0 Hypertensive heart disease with heart failure; N40.0 Benign prostatic hyperplasia without lower urinary tract symptoms; Z91.81 History of falling; I25.10 Atherosclerotic heart disease of native coronary artery without angina pectoris; Z95.2 Presence of prosthetic heart valve; G31.83 Neurocognitive disorder with Lewy bodies; F02.80 Dementia in other diseases classified elsewhere, unspecified severity, without behavioral disturbance, psychotic disturbance, mood disturbance, and anxiety; Z66 Do not resuscitate
CPT/HCPCS: 12345; 36415; 70450; 71045; 80053; 81003; 83605; 84484; 85025; 85610; 85730; 87040; 93005; 96372; 97110; 97116; 97161; 97167; 97530; 97535; 99282; J1650

== ENCOUNTER 2020-12-13 16:11 | Emergency (ER) | payer OTHER, MEDICARE, SELFPAY ==
--- NOTE | 2020-12-13 16:28 | CTR_ITS ---
PROCEDURE INFORMATION: Exam: CT Head Without Contrast Exam date and time: 12/13/2020 4:36 PM Age: 80 years old Clinical indication: Dizziness and psychosis or psychotic disorder; Unspecified; Additional info: Dizziness x today TECHNIQUE: Imaging protocol: Computed tomography of the head without contrast. Radiation optimization: All CT scans at this facility use at least one of these dose optimization techniques: automated exposure control; mA and/or kV adjustment per patient size (includes targeted exams where dose is matched to clinical indication); or iterative reconstruction. COMPARISON: No relevant prior studies available. RADIATION DOSE METRICS: Total DLP (mGy-cm): 1109.59 FINDINGS: Brain: There is no acute intracranial hemorrhage, cerebral edema, or midline shift. Mild chronic microvascular ischemic changes are seen in the periventricular white matter. Age-related cerebral and cerebellar volume loss is present. Cerebral ventricles: Moderate ex vacuo dilation of the lateral and third ventricles is noted. Superimposed normal pressure hydrocephalus is not excluded. Bones/joints: No acute fracture. Paranasal sinuses: There is no acute sinusitis. Mastoid air cells: The mastoid air cells are clear. Orbital cavity: The included orbital structures are unremarkable. Vasculature: Atherosclerotic calcifications are seen involving the cavernous carotid arteries. Soft tissues: Unremarkable. CT/CT head wo con* [id number] IMPRESSION: 1. No acute intracranial abnormality. 2. Chronic findings as discussed above. Radiation Dose CTDIVOL = (mGy): DLP = 1109.59 (mGy-cm)
[2020-12-13 16:32] VITALS: BP 151/75; PULSE 70; RESP 16; TEMP 36.3; O2SAT 96; BMI 29.9
--- NOTE | 2020-12-13 16:32 | ECG_ITS ---
[facility] Test Date: 2020-12-13 Pat Name: Pablo Lorenzana Department: Room: Gender: Male Vp Scientific: : 1940 Requested By: Ayo Vidal Order Number: [id number] Rosey MD: Rafael Sanders M.D. Measurements Intervals [place] Rate: 66 P: 4 FL: 209 QRS: 10 QRSD: 108 T: 124 QT: 390 QTc: 411 Interpretive Statements SINUS RHYTHM POSSIBLE ANTERIOR MYOCARDIAL INFARCTION , PROBABLY OLD [30 ms Q WAVE IN V3/V4, OR R < 0.2 mV IN V4] POSSIBLE INFERIOR MYOCARDIAL INFARCTION , PROBABLY OLD [30 ms Q WAVE IN II/aVF] MODERATE T-WAVE ABNORMALITY, CONSIDER LATERAL ISCHEMIA [-0.1+ mV T WAVE IN I/aVL/V5/V6] Compared to ECG 11/16/2019 16:49:17 T-wave abnormality now present Possible ischemia now present Myocardial infarct finding still present Electronically Signed On 12-13-2020 19:23:37 CDT by Rafael Sanders M.D. [email or web address]
--- NOTE | 2020-12-13 16:58 | W.ED.DIZZY ---
HPI - Dizziness General: Chief Complaint: Dizziness Stated Complaint: dizzy/ weak/ diaphoretic Time Seen by Provider: 12/13/20 16:13 History of Present Illness: HPI Narrative: The patient is an 80-year-old male with past medical history hypertension, aortic valve replacement, currently being treated for UTI with Keflex. He comes to the ER after he was getting out of his recliner he stood up and became dizzy and diaphoretic. He did not lose consciousness he just sat back down. EMS noted him to be mildly diaphoretic but not dizzy. On arrival to the ER he offers no complaints whatsoever. He is a limited historian MD elicited complaint: dizziness and lightheadedness Onset (ago): hour(s) (1) Timing: sudden onset Severity: mild Description: lightheadedness Exacerbating factors: change in body position and standing Relieving factors: rest Associated symptoms: Reports no associated symptoms; Denies chest pain, headache(s), nasal congestion or palpitations Associated neuro symptoms: Reports no associated symptoms; Deny confusion or numbness in extremities Review of Systems General: Reports: 10 or more systems reviewed and unremarkable except in HPI and below Const: Denies: fatigue Eyes: Denies: change in vision, blurry vision or eye redness ENMT: Denies: throat pain, swelling of lips/tongue, ear or mastoid pain or nasal congestion Card: Denies: chest pain, palpitations, irregular heart rhythm, edema, dyspnea on exertion or orthopnea Resp: Denies: dyspnea, productive cough or non-productive cough GI: Denies: abdominal pain, diarrhea or GI cramping : Denies: flank pain, urinary frequency or urinary urgency Musc: Denies: neck pain, back pain, extremity pain, joint pain, joint redness, limited range of motion or muscle weakness Skin/Breast: Denies: rash, pruritus, erythema, skin pain or skin tenderness Neuro: Denies: headache(s), numbness in extremities, weakness in extremities, sensory changes, difficulty walking, dizziness, confusion or Slurred speech present Psych: Denies: anxiety or depression Endo: Denies: polyuria All/Imm: Denies: urticaria, throat swelling or tongue swelling PFS ED PFSH: Medical History (Updated 12/13/20 @ 21:01 by Ayo Vidal MD) Aortic valve stenosis BPH (benign prostatic hyperplasia) -continue flomax CAD (coronary artery disease) -has known hx of CAD Diastolic CHF -chronic diastolic CHF; no acute exacerbation -Echo (2016): EF=76%, G2DD, trace MR, trace to mild TR -hold lasix HTN (hypertension) -BP wnl currently -in light of generalized weakness and recurrent falls, will resume low dose Amlodipine -VSS: continue to monitor vital signs Surgical History Aortic valve replaced bovine History of appendectomy Family History (Updated 11/16/19 @ 16:48 by Jeanne Leung MD) Other CAD (coronary artery disease) Social History (Updated 11/16/19 @ 16:49 by Jeanne Leung MD) Smoking and tobacco status: never smoked Alcohol intake: never Marital status: / Marital status details: lost his 3 yrs ago Number of children: 3 service: Yes status: Retired Physical Exam Const: COMMON NORMALS: no acute distress, average body habitus, patient oriented x3, no limitations, healthy appearing, alert and well nourished GENERAL APPEARANCE: cooperative, comfortable, well kempt and well developed ORIENTATION/CONSCIOUSNESS: Yes awake, Yes oriented to person, Yes oriented to place and Yes oriented to time HENMT: COMMON NORMALS: normocephalic, external ears normal and Normal external nose present HEAD & SCALP: normal to inspection and normocephalic NOSE: Normal external nose present EXTERNAL EAR: Yes external ears normal MOUTH: Normal oral and palatal mucosa present THROAT: posterior oropharynx normal Eye: COMMON NORMALS: Equal, round and reactive pupils present and EOMs intact bilaterally GENERAL EYE: appearance normal, both eyes and all related structures PUPIL: Yes Equal, round and reactive pupils present Neck/C-Spine: COMMON NORMALS: full ROM, no lymphadenopathy, no meningeal signs and no JVD GENERAL: Yes normal visual inspection Lymph: LYMPHATIC: no lymphadenopathy noted Chest: COMMONS NORMALS: normal inspection of the chest and normal palpation of entire chest wall Resp: COMMON NORMALS: normal respiratory effort, No retractions, No use of accessory muscles, clear to auscultation bilaterally and percussion normal EFFORT & INSPECTION: Yes able to speak in complete sentences AUSCULTATION: clear to auscultation bilaterally PERCUSSION: percussion normal Cardio: COMMON NORMALS: no JVD, regular rate, regular rhythm, S1 normal heart sound present, S2 normal heart sound present and Peripheral pulses 2+ throughout RATE: regular rate RHYTHM: regular rhythm HEART SOUNDS: S1 normal heart sound present and S2 normal heart sound present PERIPHERAL PULSES: Peripheral pulses 2+ throughout GI: COMMON NORMALS: Normal to inspection, nondistended, normoactive bowel sounds present, Soft to palpation, non-tender and no masses INSPECTION: Yes normal to inspection PALPATION: Yes Soft to palpation : COMMON NORMALS: Yes no CVA tenderness BLADDER/KIDNEY EXAM: Yes no CVA tenderness Back/Pelvis: COMMON NORMALS: no CVA tenderness, thoracic and lumbar spine normal to inspection, no thoracic nor lumbar tenderness and thoraco-lumbar ROM normal Extremity: COMMON NORMALS: normal to inspection, full ROM, capillary refill normal, no joint enlargement and no pedal edema GENERAL: Yes normal exam except as noted Neuro: COMMON NORMALS: patient oriented x3, CN's II-XII intact bilaterally, moves all extremities, no focal motor deficits, no sensory deficits noted and gait normal SENSORIUM/ORIENTATION: Yes alert, Yes oriented to person, Yes oriented to place and Yes oriented to time MENINGEAL SIGNS: Yes no meningeal signs Psych: COMMON NORMALS: mental status grossly normal, Normal thought process present, cooperative, normal affect and speech normal APPEARANCE: Yes well kempt ATTITUDE: Yes calm SPEECH: Yes normal speech THOUGHT PROCESS: Normal thought process present Skin: COMMON NORMALS: no rashes or lesions noted GENERAL SKIN EXAM: no rashes or lesions noted Course Vital Signs: Vital signs: Vital Signs Temperature 97.3 F L 12/13/20 16:32 Pulse Rate 70 12/13/20 19:04 Respiratory Rate 16 12/13/20 19:03 Blood Pressure 143/64 12/13/20 19:04 Pulse Oximetry 98 12/13/20 19:03 MDM - Dizziness MDM Narrative: Medical decision making narrative: The cause of the patient's near syncope at home is still unclear. He has had no symptoms here and work-up is negative. It is possible he was mildly dehydrated and was given IV fluids. Orthostatic vital signs in the ER were normal as well. The possibility exists that it could be related to his prosthetic heart valve. I placed a case management referral to help him get an appointment with a ethanol operations manager as he has not seen one in quite some time. Discussed these findings with his son and recommended he follow-up with cardiology, primary care next week and return to the ER with worsening symptoms Lab Data: Labs: Lab Results 12/13/20 12/13/20 12/13/20 Range/Units 17:26 17:26 17:26 WBC 6.3 (4.0-10.0) 10^3/ uL RBC 4.98 (4.1-5.3) 10^6/u L Hgb 13.9 (11.7-16.6) g/dL Hct 41.5 L (42.0-52.0) % MCV 83.3 (80-94) fL MCH 27.9 L (28.0-34.0) pg MCHC 33.5 (30.0-36.0) g/dL RDW 15.5 H (12.1-15.1) % Plt Count 168 (130-400) 10^3/c mm MPV 10.1 (7.4-10.4) fL Neut % (Auto) 56.1 % Lymph % (Auto) 25.8 % Douglas % (Auto) 7.9 % Eos % (Auto) 8.2 % Baso % (Auto) 1.4 % Neut # (Auto) 3.53 (1.8-7.7) 10^3/u L Lymph # (Auto) 1.6 (0.8-4.8) 10^3/u L Douglas # (Auto) 0.5 (0.2-0.9) 10^3/u L Eos # (Auto) 0.5 (0.0-0.8) 10^3/u L Baso # (Auto) 0.1 (0.0-0.1) 10^3/u L Nucleated RBC % (a uto) 0 % Nucleated RBCs # 0.0 /100WBC Sodium 137 (136-145) mmol/L Potassium 3.6 (3.5-5.1) mmol/L Chloride 102 (98-107) mmol/L Carbon Dioxide 25 (22-29) mmol/L Anion Gap 13.6 (5-19) BUN 15 (8-23) mg/dL Creatinine 1.1 (0.7-1.2) mg/dL GFR Calculation Not Reportable Glucose 128 H (65-115) mg/dL Calculated Osmolal ity 286 (285-295) mOsm/k g Lactate 1.6 (0.5-2.2) mmol/L Calcium 9.5 (8.5-10.5) mg/dL Total Bilirubin 0.4 (0.15-1.2) mg/dL AST 35 (0-40) U/L ALT 24 (0-41) U/L Alkaline Phosphata se 94 (40-130) IU/L Troponin T Baselin e (0-15) ng/L Troponin T 120 Min josué (0-15) ng/L Delta Troponin T (0-10) ABS# NT-Pro-B Natriuret Pep 618 H (0-450) pg/mL Total Protein 7.3 (6.6-8.7) g/dL Albumin 4.2 (3.5-5.2) g/dL Globulin 3.1 (1.3-4.6) g/dL Urine Color (Yellow) Urine Appearance (CLEAR) Urine pH (5-7) Ur Specific Gravit y (1.005-1.030) Urine Protein (Negative) Urine Glucose (UA) (Normal) Urine Ketones (Negative) Urine Blood (Negative) Urine Nitrate (Negative) Urine Bilirubin (Negative) Urine Urobilinogen (Negative) mg/dL Ur Leukocyte Adriana ase (Negative) 12/13/20 12/13/20 12/13/20 Range/Units 17:26 18:38 19:45 WBC (4.0-10.0) 10^3/ uL RBC (4.1-5.3) 10^6/u L Hgb (11.7-16.6) g/dL Hct (42.0-52.0) % MCV (80-94) fL MCH (28.0-34.0) pg MCHC (30.0-36.0) g/dL RDW (12.1-15.1) % Plt Count (130-400) 10^3/c mm MPV (7.4-10.4) fL Neut % (Auto) % Lymph % (Auto) % Douglas % (Auto) % Eos % (Auto) % Baso % (Auto) % Neut # (Auto) (1.8-7.7) 10^3/u L Lymph # (Auto) (0.8-4.8) 10^3/u L Douglas # (Auto) (0.2-0.9) 10^3/u L Eos # (Auto) (0.0-0.8) 10^3/u L Baso # (Auto) (0.0-0.1) 10^3/u L Nucleated RBC % (a uto) % Nucleated RBCs # /100WBC Sodium (136-145) mmol/L Potassium (3.5-5.1) mmol/L Chloride (98-107) mmol/L Carbon Dioxide (22-29) mmol/L Anion Gap (5-19) BUN (8-23) mg/dL Creatinine (0.7-1.2) mg/dL GFR Calculation Glucose (65-115) mg/dL Calculated Osmolal ity (285-295) mOsm/k g Lactate (0.5-2.2) mmol/L Calcium (8.5-10.5) mg/dL Total Bilirubin (0.15-1.2) mg/dL AST (0-40) U/L ALT (0-41) U/L Alkaline Phosphata se (40-130) IU/L Troponin T Baselin e 17 H (0-15) ng/L Troponin T 120 Min josué 14.99 (0-15) ng/L Delta Troponin T -2.01 L (0-10) ABS# NT-Pro-B Natriuret Pep (0-450) pg/mL Total Protein (6.6-8.7) g/dL Albumin (3.5-5.2) g/dL Globulin (1.3-4.6) g/dL Urine Color Yellow (Yellow) Urine Appearance Clear (CLEAR) Urine pH 5 (5-7) Ur Specific Gravit y 1.020 (1.005-1.030) Urine Protein Neg (Negative) Urine Glucose (UA) Norm (Normal) Urine Ketones Negative (Negative) Urine Blood Neg (Negative) Urine Nitrate Negative (Negative) Urine Bilirubin Neg (Negative) Urine Urobilinogen Norm (Negative) mg/dL Ur Leukocyte Adriana ase Negative (Negative) Discharge Plan Discharge Patient Disposition: Home Clinical Impression: Orthostatic hypotension Condition: Stable Prescriptions: No Action furosemide 20 mg Tablet 20 mg PO DAILY RF: 0 Calcium Magnesium + D 400-167-133 mg-mg-unit Tablet 1 tab PO DAILY RF: 0 calcium polycarbophil 300 mg PO DAILY RF: 0 multivitamin with folic acid [Thera] 400 mcg Tablet 1 tab PO DAILY Qty: 30 RF: 0 amlodipine 5 mg Tablet 5 mg PO DAILY Qty: 30 RF: 0 potassium chloride 20 mEq/15 mL Liquid 20 meq PO DAILY Qty: 1 RF: 0 tamsulosin [Flomax] 0.4 mg Capsule 0.4 mg PO DAILY Qty: 30 RF: 0 omeprazole 20 mg Capsule,Delayed Release(Dr/Ec) 20 mg PO DAILY Qty: 30 RF: 0 albuterol sulfate 90 mcg/actuation Hfa Aerosol Inhaler 1 inh INHALATION QID PRN (Reason: Shortness Of Breath) Qty: 1 RF: 0 cholecalciferol (vitamin D3) [Vitamin D3] 25 mcg (1,000 unit) Capsule 25 mcg PO DAILY Qty: 30 RF: 0 pregabalin [Lyrica] 75 mg Capsule 75 mg PO BID 30 Days Qty: 60 RF: 0 omega 1-kkp-nxt-fish oil [Fish Oil] 1,000 mg (120 mg-180 mg) Capsule 1 cap PO BID 30 Days Qty: 60 RF: 0 Probiotic 10 billion cell Capsule 1 cell PO DAILY Qty: 30 RF: 0 Discharge Orders: Discharge ED (Routine); Ordered 12/13/20 Ordered By: Ayo Vidal Referrals: Jerrica Melgar MD [Primary Care Provider] - Discharge Diet: Advance as tolerated Discharge Activity: Resume usual activity Patient Instructions: Near Syncope (ED), Dizziness (ED), Opioid Safety Activity Restrictions/Additional Instructions: It appears you have had an episode of near syncope related to going from a seated position to a standing position too fast. Please take care to get up from chairs and the bad slowly to let your body adjust. Return to the ER with worsening symptoms otherwise follow-up with your primary care physician in a few days to discuss again. Coding Level of Care Code ED Mutuel Teller for Kamran Fwjohnny Exam Comprehensive
[2020-12-13 17:32] LABS: Basophils # 0.1 10^3/uL (0.0-0.1); Basophils % 1.4 %; Eosinophils # 0.5 10^3/uL (0.0-0.8); Eosinophils % 8.2 %; Hematocrit 41.5 % (42.0-52.0); Hemoglobin 13.9 g/dL (11.7-16.6); Lymphocytes # 1.6 10^3/uL (0.8-4.8); Lymphocytes % 25.8 %; Mean Corpuscular HGB Conc 33.5 g/dL (30.0-36.0); Mean Corpuscular Hemoglobin 27.9 pg (28.0-34.0); Mean Corpuscular Volume 83.3 fL (80-94); Mean Platelet Volume 10.1 fL (7.4-10.4); Monocytes # 0.5 10^3/uL (0.2-0.9); Monocytes % 7.9 %; Neutrophils # 3.53 10^3/uL (1.8-7.7); Neutrophils % 56.1 %; Nucleated Red Blood Cells % 0 %; Platelet Count 168 10^3/cmm (130-400); Red Blood Count 4.98 10^6/uL (4.1-5.3); Red Cell Distribution Width 15.5 % (12.1-15.1); White Blood Count 6.3 10^3/uL (4.0-10.0)
[2020-12-13 18:02] LABS: Lactate (Lactic Acid level) 1.6 mmol/L (0.5-2.2)
[2020-12-13 18:04] LABS: Troponin(5th) Baseline 17 ng/L (0-15)
[2020-12-13 18:13] LABS: Alanine Aminotransferase 24 U/L (0-41); Albumin Level 4.2 g/dL (3.5-5.2); Alkaline Phosphatase 94 IU/L (40-130); Blood Urea Nitrogen 15 mg/dL (8-23); Calcium 9.5 mg/dL (8.5-10.5); Carbon Dioxide 25 mmol/L (22-29); Chloride 102 mmol/L (98-107); Globulin 3.1 g/dL (1.3-4.6); Glucose 128 mg/dL (65-115); NT Pro B Type Natriuretic Pept 618 pg/mL (0-450); Osmolality Calculated 286 mOsm/kg (285-295); Sodium 137 mmol/L (136-145); Total Bilirubin 0.4 mg/dL (0.15-1.2); Total Protein 7.3 g/dL (6.6-8.7)
[2020-12-13 18:14] LABS: Anion Gap 13.6 (5-19); Aspartate Amino Transferase 35 U/L (0-40); Potassium 3.6 mmol/L (3.5-5.1)
--- NOTE | 2020-12-13 18:32 | ECG_ITS ---
[facility] Test Date: 2020-12-13 Pat Name: Pablo Lorenzana Department: Room: Gender: Male Zigzag Appliquer: : 1940 Requested By: Ayo Vidal Order Number: [id number] Rosey MD: Rafael Sanders M.D. Measurements Intervals [place] Rate: 65 P: 30 TX: 247 QRS: 7 QRSD: 110 T: 127 QT: 411 QTc: 429 Interpretive Statements SINUS RHYTHM WITH FIRST DEGREE AV BLOCK POSSIBLE ANTERIOR MYOCARDIAL INFARCTION , PROBABLY OLD [30 ms Q WAVE IN V3/V4, OR R < 0.2 mV IN V4] POSSIBLE INFERIOR MYOCARDIAL INFARCTION , PROBABLY OLD [30 ms Q WAVE IN II/aVF] MODERATE T-WAVE ABNORMALITY, CONSIDER LATERAL ISCHEMIA [-0.1+ mV T WAVE IN I/aVL/V5/V6] Compared to ECG 12/13/2020 16:56:47 First degree AV block now present Myocardial infarct finding still present T-wave abnormality still present Possible ischemia still present Electronically Signed On 12-13-2020 19:28:02 CDT by Rafael Sanders M.D. [email or web address] [email or web address]/store/[id number]
[2020-12-13] MEDS: sodium chloride 0.9% 1,000 ML 200 ML IV (18:43)
[2020-12-13 18:44] LABS: Add Urine Microscopic? NO; Charge for UA Resulting for Rev
[2020-12-13 18:45] VITALS: BP 146/76; PULSE 65; RESP 16; O2SAT 96
[2020-12-13 18:58] LABS: Bilirubin Urine Neg (Negative); Blood Urine Neg (Negative); Glucose Urine UA Norm (Normal); Ketones Urine Negative (Negative); Leukocyte Esterase Urine Negative (Negative); Nitrate Urine Negative (Negative); Protein Urine Neg (Negative); Urine Appearance Clear (CLEAR); Urine Color Yellow (Yellow); Urobilinogen Urine Norm (Negative); pH Urine 5 (5-7)
--- NOTE | 2020-12-13 19:00 | PC.NURSE ---
Report received from CADEN Limon and care transferred to CADEN Hoffman
[2020-12-13 19:03] VITALS: BP 147/66; PULSE 69; RESP 16; O2SAT 98
[2020-12-13 19:04] VITALS: BP 143/64; BP 158/76; BP 164/74; PULSE 70; PULSE 76; PULSE 78
[2020-12-13 20:15] LABS: Troponin 5 2HR 14.99 ng/L (0-15)
[2020-12-13 20:17] LABS: Troponin 5 2HR Delta -2.01 ABS# (0-10)
[2020-12-13 21:33] VITALS: PULSE 65; RESP 15
[2020-12-13 21:35] VITALS: BP 159/73; PULSE 70; RESP 15; O2SAT 97
--- NOTE | 2020-12-18 13:40 | DCPLANNER ---
nursing unit manager had message to schedule a follow up appointment for patient with heat care. nursing unit manager called heart care, spoke with Estefany, gave clinic patients information, a follow up appointment was scheduled for Thursday, December 26, 2020 at 3:00 with . nursing unit manager called patient and gave patient the appointment information. nursing unit manager also emailed patients information to Irais with [facility] so that the VA authorization could be started.
--- NOTE | 2021-01-17 17:01 | DCPLANNER ---
Patient had a follow up appointment scheduled for 12.26.20 with heart care - patient did attend appointment.
== END 2020-12-13 21:46 | disposition home or self-care (01) ==
PROVIDERS: Emergency Provider Family Medicine; PCP Family Medicine
DX: I95.1 Orthostatic hypotension (principal); I25.10 Atherosclerotic heart disease of native coronary artery without angina pectoris; I11.0 Hypertensive heart disease with heart failure; I50.32 Chronic diastolic (congestive) heart failure
CPT/HCPCS: 36415; 70450; 80053; 81003; 83605; 83880; 84484; 85025; 93005; 96360; 96361; 99284; J7030

== ENCOUNTER 2021-02-01 12:23 | Outpatient (CLI) | payer OTHER, SELFPAY ==
--- NOTE | 2021-02-01 12:45 | USCV_ITS ---
Pablo Lorenzana Age: 80 Gender: M : 1940 Exam Date: 02/01/2021 12:43 Ordering Phys: Ayanna Warren MD ([email or web address]) Technologist: Beatriz Anderson Exam Location: [facility] [place] Indication: bioprosthetic AOV, dizziness BP: 134 / 88 HR: 64 Rhythm: Sinus Technical Quality: Adequate MEASUREMENTS (Male / Female) Normal Values 2D ECHO LV Diastolic Diameter PLAX 4.2 cm 4.2 - 5.9 / 3.9 - 5.3 cm LV Systolic Diameter PLAX 2.4 cm IVS Diastolic Thickness 1.7 cm 0.6 - 1.0 / 0.6 - 0.9 cm IVS Systolic Thickness 2.4 cm LVPW Diastolic Thickness 1.2 cm 0.6 - 1.0 / 0.6 - 0.9 cm LVPW Systolic Thickness 1.9 cm LVOT Diameter 2.0 cm LV Ejection Fraction 2D Teich 74.3 % LV Ejection Fraction MOD 2C 69.3 % LV Ejection Fraction 2C AL 70.1 % LA Diameter 3.4 cm LA Width 3.2 cm LA Height 4.2 cm RA Width 2.4 cm RA Height 4.3 cm Aorta at Sinotubular Diameter 3.3 cm M-MODE LV Diastolic Diameter MM 5.9 cm 4.2 - 5.9 / 3.9 - 5.3 cm LV Systolic Diameter MM 3.5 cm LV Ejection Fraction MM Teich 71.1 % IVS Diastolic Thickness MM 1.1 cm 0.6 - 1.0 / 0.6 - 0.9 cm IVS Systolic Thickness MM 1.3 cm LVPW Diastolic Thickness MM 1.1 cm 0.6 - 1.0 / 0.6 - 0.9 cm LVPW Systolic Thickness MM 1.8 cm Aortic Annulus Diameter 3.3 cm LA Ao Ratio MM 0.9 MV E Point Septal Separation 0.6 cm DOPPLER AV Peak Velocity 294.0 cm/s LVOT Peak Velocity 69.0 cm/s AV Area Cont Eq vti 0.9 cm squared AV Area Cont Eq pk 0.7 cm squared MV Peak Velocity 97.0 cm/s MV Area PHT 3.5 cm squared Mitral E to A Ratio 0.7 MV E' Velocity 38.0 cm/s Mitral E to MV E' Ratio 8.1 Mitral E to LV E' Lateral Ratio 6.8 Mitral E to LV E' Septal Ratio 9.9 TR Peak Velocity 71.0 cm/s TR Peak Gradient 2.0 mmHg Right Atrial Pressure 3.0 mmHg Pulmonary Artery Systolic Pressu 5.0 mmHg PV Peak Velocity 67.0 cm/s RV Acceleration Time 0.1 s RV Ejection Time 0.3 s RV AcT/ET 0.6 FINDINGS Left Ventricle Normal left ventricular size, systolic function and increased wall thickness, with no regional wall motion abnormalities. Moderate concentric left ventricular hypertrophy. Left ventricular ejection fraction is estimated at 65 %. Indeterminate diastolic function. Right Ventricle Normal right ventricular size and systolic function. Right ventricular systolic pressure 5 mmHg. Right Atrium Normal right atrial size. Left Atrium Mildly increased left atrial size. Mitral Valve Moderate mitral annular calcification. Mildly thickened mitral valve. No mitral valve stenosis. Mild mitral valve regurgitation. Aortic Valve Bioprosthetic aortic valve in situ. 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 Mild perivalvular aortic valve regurgitation. Tricuspid Valve Structurally normal tricuspid valve. Mild tricuspid valve regurgitation. Pulmonic Valve No pulmonary valve stenosis. Trace pulmonary valve regurgitation. Pericardium No pericardial effusion. Aorta Normal size aortic root and proximal ascending aorta. Normal- sized inferior vena cava. CONCLUSIONS 1. Normal left ventricular size, systolic function and increased wall thickness, with no regional wall motion abnormalities. Moderate concentric left ventricular hypertrophy. Left ventricular ejection fraction is estimated at 65 %. 2. Normal right ventricular size and systolic function. 3. Bioprosthetic aortic valve in situ. 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 Mild perivalvular aortic valve regurgitation. 4. Mild tricuspid valve regurgitation. 5. When compared to previous echocardiogram dated 09/05/2015, there is bioprosthetic aortic valve stenosis now. Ayanna Warren MD (Electronically Signed) Final Date: 05 February 2021 17:06 S
== END 2021-02-01 12:24 | disposition home or self-care (01) ==
LOC: US 12:26
PROVIDERS: PCP Family Medicine; Visit Provider Internal Medicine Cardiovascular Disease
DX: Z95.2 Presence of prosthetic heart valve (principal); R42 Dizziness and giddiness; I35.0 Nonrheumatic aortic (valve) stenosis; I07.1 Rheumatic tricuspid insufficiency
CPT/HCPCS: 93306

== ENCOUNTER 2021-08-15 06:00 | Outpatient (RCR) | payer OTHER, SELFPAY | END 2021-09-02 23:59 | disposition home or self-care (01) | LOC: TPT 06:00 | PROVIDERS: PCP Family Medicine; Referring Provider Family Medicine; Visit Provider Family Medicine | DX: R26.89 Other abnormalities of gait and mobility (principal) | CPT/HCPCS: 97110; 97163 ==

== ENCOUNTER 2021-09-03 06:00 | Outpatient (RCR) | payer OTHER, SELFPAY | END 2021-09-30 23:59 | disposition home or self-care (01) | LOC: TPT 06:00 | PROVIDERS: PCP Family Medicine; Referring Provider Family Medicine; Visit Provider Family Medicine | DX: R26.89 Other abnormalities of gait and mobility (principal) | CPT/HCPCS: 97110 ==

== ENCOUNTER 2021-10-01 06:00 | Outpatient (RCR) | payer OTHER, SELFPAY | END 2021-10-31 16:27 | disposition home or self-care (01) | LOC: TPT 06:00 | PROVIDERS: PCP Family Medicine; Referring Provider Family Medicine; Visit Provider Family Medicine | DX: R26.89 Other abnormalities of gait and mobility (principal) | CPT/HCPCS: 97110 ==

== ENCOUNTER 2021-11-24 19:33 | Emergency (ER) | payer OTHER, MEDICARE, SELFPAY ==
--- NOTE | 2021-11-24 20:20 | XRR_ITS ---
PROCEDURE INFORMATION: Exam: XR Chest Exam date and time: 11/24/2021 8:52 PM Age: 80 years old Clinical indication: Injury or trauma; Fall; Blunt trauma (contusions or hematomas); Prior surgery; Surgery date: 6+ months; Surgery type: Valve TECHNIQUE: Imaging protocol: XR of the chest. Views: 1 view. COMPARISON: CR XR chest 1V portable [id number] 11/16/2019 10:48 AM FINDINGS: Lungs: Mild atelectasis at the left lung base. The lungs are otherwise unremarkable. Pleural spaces: No pleural effusion. No pneumothorax. Heart/Mediastinum: No cardiomegaly. Vasculature: The thoracic aorta is atherosclerotic. Bones/joints: Median sternotomy noted. No acute osseous abnormality demonstrated. XR/XR chest 1V portable [id number] IMPRESSION: 1. Mild atelectasis at the left lung base. The lungs are otherwise unremarkable. 2. No acute osseous abnormality demonstrated.
--- NOTE | 2021-11-24 20:20 | CTR_ITS ---
PROCEDURE INFORMATION: Exam: CT Head Without Contrast Exam date and time: 11/24/2021 9:52 PM Age: 80 years old Clinical indication: Injury or trauma; Laceration; Without loss of consciousness; Without residual foreign body; Scalp; Patient HX: Lac to back of head from fall; Additional info: Fall head inj TECHNIQUE: Imaging protocol: Computed tomography of the head without contrast. Radiation optimization: All CT scans at this facility use at least one of these dose optimization techniques: automated exposure control; mA and/or kV adjustment per patient size (includes targeted exams where dose is matched to clinical indication); or iterative reconstruction. COMPARISON: CT head wo con* [id number] 12/13/2020 4:44 PM RADIATION DOSE METRICS: Total DLP (mGy-cm): 1059.16 FINDINGS: Brain: Age related parenchymal volume loss noted. There is decreased attenuation of the periventricular white matter, consistent with mild chronic microangiopathic white matter disease. No parenchymal edema identified. No intracranial hemorrhage noted. Cerebral ventricles: Prominent ventricles secondary to central atrophy. Paranasal sinuses: Visualized sinuses are unremarkable. No fluid levels. Mastoid air cells: Unremarkable as visualized. No mastoid effusion. Vasculature: Atherosclerotic calcification noted of the distal intracranial internal carotid arteries, and the distal vertebral arteries. Bones/joints: Unremarkable. No acute fracture. Soft tissues: Posterior scalp laceration noted near the vertex. CT/CT head wo con* [id number] IMPRESSION: 1. Posterior scalp laceration noted near the vertex. No associated calvarial fracture. 2. No acute intracranial abnormality demonstrated. 3. There is no significant change from the prior examination.
--- NOTE | 2021-11-24 20:21 | ECG_ITS ---
[facility] Test Date: 2021-11-24 Pat Name: Pablo Lorenzana Department: Room: Gender: Male Quality System Manager: : 1940 Requested By: Ministerio Valles Order Number: [id number] Rosey MD: Rafael Sanedrs M.D. Measurements Intervals [place] Rate: 78 P: 12 NM: 172 QRS: 12 QRSD: 102 T: 166 QT: 372 QTc: 426 Interpretive Statements SINUS RHYTHM POSSIBLE ANTERIOR MYOCARDIAL INFARCTION , OF INDETERMINATE AGE [30 ms Q WAVE IN V3/V4, OR R < 0.2 mV IN V4] PROBABLE INFERIOR MYOCARDIAL INFARCTION , PROBABLY OLD [35 ms Q WAVE IN II/aVF] MODERATE T-WAVE ABNORMALITY, CONSIDER LATERAL ISCHEMIA [-0.1+ mV T-WAVE IN I/aVL/V5/V6] Compared to ECG 12/13/2020 19:14:15 First degree AV block no longer present Myocardial infarct finding still present T-wave abnormality still present Possible ischemia still present Electronically Signed On 11-25-2021 22:10:59 CDT by Rafael Sanders M.D. [email or web address] [email or web address] county [email or web address]. mary[facility] [place] [facility].[employer]/store/[id number]
[2021-11-24 20:34] LABS: Basophils # 0.1 10^3/uL (0.0-0.1); Basophils % 1.5 %; Eosinophils # 0.6 10^3/uL (0.0-0.8); Eosinophils % 9.3 %; Hematocrit 39.6 % (42.0-52.0); Hemoglobin 13.4 g/dL (11.7-16.6); Lymphocytes # 1.4 10^3/uL (0.8-4.8); Lymphocytes % 23.7 %; Mean Corpuscular HGB Conc 33.8 g/dL (30.0-36.0); Mean Corpuscular Hemoglobin 28.2 pg (28.0-34.0); Mean Corpuscular Volume 83.2 fl (80-94); Mean Platelet Volume 10.8 fL (7.4-10.4); Monocytes # 0.4 10^3/uL (0.2-0.9); Monocytes % 7.2 %; Neutrophils # 3.47 10^3/uL (1.8-7.7); Neutrophils % 57.8 %; Nucleated Red Blood Cells % 0 %; Platelet Count 132 10^3/cmm (130-400); Red Blood Count 4.76 10^6/uL (4.1-5.3); Red Cell Distribution Width 15.9 % (12.1-15.1)
--- NOTE | 2021-11-24 20:35 | ED_ITS ---
HPI - Fall General: Chief Complaint: Fall Stated Complaint: fall, head lac Time Seen by Provider: 11/24/21 19:57 Source: patient History of Present Illness: 80-year-old gentleman who fell in his kitchen at home. He does not remember specific symptoms prior to his fall. He does remember hitting the floor. He has a laceration to his occiput,. He denies any pain. He denies any chest discomfort. He does have a history of valvular and coronary disease MD complaint: fall Onset (ago): minute(s) Fall from: standing Fall witnessed: yes, by family Place fall occurred: home Loss of consciousness: Unsure Prolonged down time: no Symptoms prior to fall: other Context: other Location of injury: head Associated symptoms-after fall: Denies abdominal pain, chest pain, confusion, difficulty walking, headache(s), lightheadedness, neck pain, short of breath or weakness Review of Systems Const: Denies: fever(s) Eyes: Denies: change in vision ENMT: Denies: throat pain Card: Denies: chest pain or lightheadedness Resp: Denies: dyspnea, productive cough or non-productive cough GI: Denies: abdominal pain, vomiting or hematemesis Musc: Denies: neck pain Neuro: Denies: headache(s), difficulty walking or confusion PFSH ED PFSH: Medical History Aortic valve stenosis BPH (benign prostatic hyperplasia) -continue flomax CAD (coronary artery disease) -has known hx of CAD Diastolic CHF -chronic diastolic CHF; no acute exacerbation -Echo (2016): EF=76%, G2DD, trace MR, trace to mild TR -hold lasix HTN (hypertension) -BP wnl currently -in light of generalized weakness and recurrent falls, will resume low dose Amlodipine -VSS: continue to monitor vital signs Surgical History (Updated 12/29/20 @ 14:35 by Ayanna Warren MD) Aortic valve replaced bovine History of appendectomy Family History Other CAD (coronary artery disease) Social History Smoking and tobacco status: never smoked Alcohol intake: never Marital status: / Marital status details: lost his 3 yrs ago Number of children: 3 service: Yes status: Retired Physical Exam Const: GENERAL APPEARANCE: cooperative and frail appearing (mild) HENMT: COMMON NORMALS: normocephalic and Normal external nose present HEAD & SCALP: normocephalic FACE & SINUS: normal facial exam and sinus tenderness NOSE: Normal external nose present and Normal nares present Eye: COMMON NORMALS: Equal, round and reactive pupils present and EOMs intact bilaterally PUPIL: Yes Equal, round and reactive pupils present OTHER: 2 cm laceration to occiput. Bleeding controlled. Small area of contusion surrounding. Neck/C-Spine: GENERAL: Yes normal visual inspection and Yes trachea midline Chest: COMMONS NORMALS: normal inspection of the chest Resp: COMMON NORMALS: normal respiratory effort, No use of accessory muscles and clear to auscultation bilaterally AUSCULTATION: clear to auscultation bilaterally Cardio: COMMON NORMALS: regular rate and regular rhythm RATE: regular rate RHYTHM: regular rhythm HEART SOUNDS: Murmur heart sound present GI: COMMON NORMALS: Normal to inspection, nondistended, normoactive bowel sounds present, Soft to palpation and non-tender PALPATION: Yes Soft to palpation Neuro: CHAVO COMA SCALE: document GCS findings [place] coma scale eye opening: Spontaneous [place] coma scale verbal response: Orientated [place] coma scale motor response: Obey commands Chavo coma scale total score: 15 CRANIAL NERVES: Yes CN normal except as noted COORDINATION/BALANCE: finger -to-nose test normal MOTOR EXAM: Pronator motor function not present COORDINATION: [id number] test normal Psych: COMMON NORMALS: cooperative Procedures Laceration Laceration 1: Site: scalp Size (cm): 3 Depth: simple, single layer Skin layer closed with: other (dermabond) Course Vital Signs: Vital signs: Vital Signs Pulse Rate 75 11/24/21 23:20 Respiratory Rate 18 11/24/21 23:20 Blood Pressure 138/54 11/24/21 23:20 Pulse Oximetry 94 11/24/21 23:20 MDM - Fall Medical Decision Making Patient is asymptomatic. Troponin is at baseline. CBC is normal. BMP is normal. Head CT is negative for acute change. Chest x-ray is negative as well. No significant ST changes on EKG. He will be allowed discharge. Lab Data : 11/24/21 20:15 11/24/21 20:15 Radiology Impressions Chest X-Ray 11/24/21 20:20 IMPRESSION: 1. Mild atelectasis at the left lung base. The lungs are otherwise unremarkable. 2. No acute osseous abnormality demonstrated. Head CT 11/24/21 20:20 IMPRESSION: 1. Posterior scalp laceration noted near the vertex. No associated calvarial fracture. 2. No acute intracranial abnormality demonstrated. 3. There is no significant change from the prior examination. Laboratory Results WBC 6.0 10^3/uL (4.0-10.0) 11/24/21 20:15 RBC 4.76 10^6/uL (4.1-5.3) 11/24/21 20:15 Hgb 13.4 g/dL (11.7-16.6) 11/24/21 20:15 Hct 39.6 % (42.0-52.0) L 11/24/21 20:15 MCV 83.2 fl (80-94) 11/24/21 20:15 MCH 28.2 pg (28.0-34.0) 11/24/21 20:15 MCHC 33.8 g/dL (30.0-36.0) 11/24/21 20:15 RDW 15.9 % (12.1-15.1) H 11/24/21 20:15 Plt Count 132 10^3/cmm (130-400) 11/24/21 20:15 MPV 10.8 fL (7.4-10.4) H 11/24/21 20:15 Neut % (Auto) 57.8 % 11/24/21 20:15 Lymph % (Auto) 23.7 % 11/24/21 20:15 [place] % (Auto) 7.2 % 11/24/21 20:15 Eos % (Auto) 9.3 % 11/24/21 20:15 Baso % (Auto) 1.5 % 11/24/21 20:15 Neut # (Auto) 3.47 10^3/uL (1.8-7.7) 11/24/21 20:15 Lymph # (Auto) 1.4 10^3/uL (0.8-4.8) 11/24/21 20:15 [place] # (Auto) 0.4 10^3/uL (0.2-0.9) 11/24/21 20:15 Eos # (Auto) 0.6 10^3/uL (0.0-0.8) 11/24/21 20:15 Baso # (Auto) 0.1 10^3/uL (0.0-0.1) 11/24/21 20:15 Nucleated RBC % (auto) 0 % 11/24/21 20:15 Nucleated RBCs # 0.0 /100WBC 11/24/21 20:15 Sodium 139 mmol/L (136-145) 11/24/21 20:15 Potassium 4.0 mmol/L (3.5-5.1) 11/24/21 20:15 Chloride 103 mmol/L (98-107) 11/24/21 20:15 Carbon Dioxide 25 mmol/L (22-29) 11/24/21 20:15 Anion Gap 15.0 (5-19) 11/24/21 20:15 BUN 12 mg/dL (8-23) 11/24/21 20:15 Creatinine 1.0 mg/dL (0.7-1.2) 11/24/21 20:15 GFR Calculation Not Reportable 11/24/21 20:15 Glucose 115 mg/dL (65-115) 11/24/21 20:15 Calculated Osmolality 289 mOsm/kg (285-295) 11/24/21 20:15 Calcium 9.1 mg/dL (8.5-10.5) 11/24/21 20:15 Magnesium 2.4 mg/dL (1.7-2.3) H 11/24/21 20:15 Total Bilirubin 0.4 mg/dL (0.15-1.2) 11/24/21 20:15 AST 43 U/L (0-40) H 11/24/21 20:15 ALT 32 U/L (0-41) 11/24/21 20:15 Alkaline Phosphatase 106 IU/L (40-130) 11/24/21 20:15 Troponin T Baseline 18 ng/L (0-15) H 11/24/21 20:15 Troponin T 120 Minute 17.43 ng/L (0-15) H 11/24/21 22:30 Delta Troponin T -0.57 ABS# (0-10) L 11/24/21 22:30 Total Protein 6.8 g/dL (6.6-8.7) 11/24/21 20:15 Albumin 4.2 g/dL (3.5-5.2) 11/24/21 20:15 Globulin 2.6 g/dL (1.3-4.6) 11/24/21 20:15 Discharge Plan Discharge Patient Disposition: Home Clinical Impression: Laceration of occipital scalp, Concussion Condition: Stable Prescriptions: No Action furosemide 20 mg Tablet 20 mg PO DAILY 0RF Calcium Magnesium + D 400-167-133 mg-mg-unit Tablet 1 tab PO DAILY 0RF calcium polycarbophil 300 mg PO DAILY 0RF multivitamin with folic acid [Thera] 400 mcg Tablet 1 tab PO DAILY Qty: 30 0RF amlodipine 5 mg Tablet 5 mg PO DAILY Qty: 30 0RF potassium chloride 20 mEq/15 mL Liquid 20 meq PO DAILY Qty: 1 0RF tamsulosin [Flomax] 0.4 mg Capsule 0.4 mg PO DAILY Qty: 30 0RF Rx Instructions: TAKE IN THE EVENING omeprazole 20 mg Capsule,Delayed Release(Dr/Ec) 20 mg PO DAILY Qty: 30 0RF albuterol sulfate 90 mcg/actuation Hfa Aerosol Inhaler 1 inh INHALATION QID PRN (Reason: Shortness Of Breath) Qty: 1 0RF cholecalciferol (vitamin D3) [Vitamin D3] 25 mcg (1,000 unit) Capsule 25 mcg PO DAILY Qty: 30 0RF pregabalin [Lyrica] 75 mg Capsule 75 mg PO BID 30 Days Qty: 60 0RF omega 6-cat-fpw-fish oil [Fish Oil] 1,000 mg (120 mg-180 mg) Capsule 1 cap PO BID 30 Days Qty: 60 0RF Probiotic 10 billion cell Capsule 1 cell PO DAILY Qty: 30 0RF Discharge Orders: Discharge ED (Routine); Ordered 11/24/21 Ordered By: Ministerio Caballero Referrals: Jerrica Melgar MD [Primary Care Provider] - Patient Instructions: Scalp Laceration, Concussion (ED) Activity Restrictions/Additional Instructions: Return for worsening mental status, chest discomfort, shortness of breath, worsening headache, vomiting, any other concerning symptoms. Coding Level of Care Code ED Fiber Optic Technician for Chg Fwd Exam Comprehensive
[2021-11-24 20:45] LABS: Alanine Aminotransferase 32 U/L (0-41); Albumin Level 4.2 g/dL (3.5-5.2); Alkaline Phosphatase 106 IU/L (40-130); Aspartate Amino Transferase 43 U/L (0-40); Blood Urea Nitrogen 12 mg/dL (8-23); Calcium 9.1 mg/dL (8.5-10.5); Carbon Dioxide 25 mmol/L (22-29); Chloride 103 mmol/L (98-107); Globulin 2.6 g/dL (1.3-4.6); Glucose 115 mg/dL (65-115); Magnesium 2.4 mg/dL (1.7-2.3); Osmolality Calculated 289 mOsm/kg (285-295); Sodium 139 mmol/L (136-145); Total Bilirubin 0.4 mg/dL (0.15-1.2); Total Protein 6.8 g/dL (6.6-8.7); Troponin(5th) Baseline 18 ng/L (0-15)
[2021-11-24 20:54] VITALS: BP 138/54; PULSE 75; RESP 18; O2SAT 94
--- NOTE | 2021-11-24 22:21 | ECG_ITS ---
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 Measurements Intervals [place] Rate: 66 P: 13 DC: 198 QRS: -3 QRSD: 111 T: 146 QT: 413 QTc: 435 Interpretive Statements SINUS RHYTHM POSSIBLE ANTERIOR MYOCARDIAL INFARCTION , PROBABLY OLD [30 ms Q WAVE IN V3/V4, OR R < 0.2 mV IN V4] INFERIOR MYOCARDIAL INFARCTION , PROBABLY OLD [40+ ms Q WAVE AND/OR ST/T ABNORMALITY IN II/aVF] MODERATE T-WAVE ABNORMALITY, CONSIDER LATERAL ISCHEMIA [-0.1+ mV T-WAVE IN I/aVL/V5/V6] Compared to ECG 12/13/2020 19:14:15 First degree AV block no longer present Myocardial infarct finding still present T-wave abnormality still present Possible ischemia still present Electronically Signed On 11-25-2021 22:14:41 CDT by Rafael Sanders M.D. [id number]
[2021-11-24 22:53] LABS: Troponin 5 2HR 17.43 ng/L (0-15)
[2021-11-24 23:20] VITALS: BP 138/54; PULSE 75; RESP 18; O2SAT 94
[2021-11-24 23:25] LABS: Troponin 5 2HR Delta -0.57 ABS# (0-10)
== END 2021-11-24 23:25 | disposition home or self-care (01) ==
PROVIDERS: Emergency Provider Emergency Medicine; PCP Family Medicine
DX: S01.01XA Laceration without foreign body of scalp, initial encounter (principal); W19.XXXA Unspecified fall, initial encounter; Y92.010 Kitchen of single-family (private) house as the place of occurrence of the external cause; I25.10 Atherosclerotic heart disease of native coronary artery without angina pectoris; I11.0 Hypertensive heart disease with heart failure; I50.32 Chronic diastolic (congestive) heart failure
CPT/HCPCS: 12002; 36415; 70450; 71045; 80053; 83735; 84484; 85025; 93005; 99283

== ENCOUNTER 2022-07-29 09:22 | Emergency (ER) | payer OTHER, SELFPAY ==
[2022-07-29 09:25] VITALS: BP 136/95; PULSE 71; RESP 14; O2SAT 97
--- NOTE | 2022-07-29 10:06 | ECG_ITS ---
[facility] Test Date: 2022-07-29 Pat Name: Pablo Lorenzana Department: Room: Gender: Male Table Maker: : 1940 Requested By: Enoc Plascencia Order Number: [id number] Rosey MD: Rafael Sanders M.D. Measurements Intervals [place] Rate: 72 P: 24 PA: 212 QRS: 16 QRSD: 112 T: 158 QT: 405 QTc: 444 Interpretive Statements SINUS RHYTHM WITH FIRST DEGREE AV BLOCK POSSIBLE ANTERIOR MYOCARDIAL INFARCTION , OF INDETERMINATE AGE [30 ms Q WAVE IN V3/V4, OR R < 0.2 mV IN V4] MODERATE T-WAVE ABNORMALITY, CONSIDER LATERAL ISCHEMIA [-0.1+ mV T-WAVE IN I/aVL/V5/V6] Compared to ECG 11/24/2021 22:00:13 First degree AV block now present Myocardial infarct finding still present T-wave abnormality still present Possible ischemia still present Electronically Signed On 07-29-2022 14:09:24 HAMPER MAKER by Rafael Sanders M.D. [id number]
--- NOTE | 2022-07-29 10:07 | CT_ITS ---
WS: [id number] CT ABDOMEN PELVIS TECHNIQUE: Noncontrast CT of the abdomen and pelvis with coronal and sagittal reformatted images. CLINICAL INFORMATION: Abdominal pain COMPARISON: CT 4 DLP: 656.[address] scans at [facility] use at least one of these dose optimization techniques: automated e xposure control; mA and/or kV adjustment per patient size (includes targeted exams where dose is matc hed to clinical indication); or iterative reconstruction. FINDINGS: Prior appendectomy. Trace pleural fluid in the lung bases. Compressive atelectasis in the lung bases. A few calcified granulomas. Tiny noncalcified nodule in the lingula measures 3 mm unchanged. Cholelithiasis. No gallbladder wall thickening. Noncontrast liver is normal. Small esophageal hiatal hernia. Splenic granulomas. Fatty atrophy of the pancreas. Splenic artery calcification. Adrenal glan ds are normal. Bilateral renal cysts largest in the superior pole RIGHT kidney measuring 4.1 cm. Moderate aortic calcification. Normal caliber abdominal aorta. Markedly enlarged prostate measuring 6 .5 x 4.7 CM. Impingement on the bladder. Small [place] bladder diverticulum along the anterior dome of the bladder measuring 14 mm. No periaortic or retroperitoneal lymphadepathy. CT/CT abdomen pelvis wo con [id number] IMPRESSION: 1. Tiny gallbladder calculi. No gallbladder wall thickening or pericholecystic fluid. 2. Trace bilateral pleural fluid with compressive atelectasis in the lung base s. 3. Markedly enlarged prostate measuring 6.5 x 4.7 cm. Recommend correlation PS A. 4. No other acute findings.
--- NOTE | 2022-07-29 10:07 | XR_ITS ---
WS: [id number] Portable AP upright chest, 07/29/2022 Clinical Data: dyspnea/cough Comparison: Portable chest, 11/24/2021 Findings: No nodules, masses or effusions are seen. The heart is normal. The pulmonary vascularity is not increased. No pneumonia or pneumothorax is seen. The aortic arch shows tortuosity. There are mid line sternotomy sutures. Mild bilateral osteoarthritis of both shoulders is noted. XR/XR chest 1V portable [id number] Impression: Atherosclerosis.
--- NOTE | 2022-07-29 10:08 | W.ED.ABDPA2 ---
HPI - Abdominal Pain General: Chief Complaint: Abdominal Pain Stated Complaint: Abd Pain Time Seen by Provider: 07/29/22 09:37 Source: patient Mode of arrival: EMS History of Present Illness: 81-year-old male presents emergency room he is awake and alert he says been coughing for the last 2 weeks he has a stomachache no nausea vomiting diarrhea no fever sweats chills no chest pain. Not been coughing anything up. No hemoptysis no sputum. There is no family members at the bedside. MD elicited complaint: abdominal pain Onset (ago): week(s) (2) Pain Consistency: intermittent Location: Diffuse Severity: moderate Quality: cramping Radiation: none Migration to: no migration Exacerbating factors: nothing Relieving factors: nothing Associated Symptoms: Reports GI cramping, dysuria, nausea and poor appetite; Denies anorexia, belching, bloating, change in bowel habits, change in stool character, chills, coffee ground emesis, constipation, diarrhea, dyspepsia, excessive flatus, fever(s), heartburn, hematochezia, hematuria, hematemesis, fecal incontinence, loose stools, melena, syncope and vomiting Review of Systems Const: Denies: fever(s) or chills ENMT: Denies: throat pain, ear or mastoid pain, nasal discharge or nasal congestion Card: Denies: chest pain, palpitations, irregular heart rhythm, edema or syncope Resp: Denies: dyspnea, productive cough or non-productive cough GI: Reports: abdominal pain, nausea and GI cramping; Denies: vomiting, hematemesis, coffee ground emesis, heartburn, diarrhea, constipation, bloating, belching, excessive flatus, fecal incontinence, change in bowel habits, change in stool character, hematochezia or melena : Reports: dysuria; Denies: hematuria Skin/Breast: Denies: rash or pruritus PFS ED PFSH: Medical History Aortic valve stenosis BPH (benign prostatic hyperplasia) -continue flomax CAD (coronary artery disease) -has known hx of CAD Diastolic CHF -chronic diastolic CHF; no acute exacerbation -Echo (2016): EF=76%, G2DD, trace MR, trace to mild TR -hold lasix HTN (hypertension) -BP wnl currently -in light of generalized weakness and recurrent falls, will resume low dose Amlodipine -VSS: continue to monitor vital signs Surgical History Aortic valve replaced bovine History of appendectomy Family History Other CAD (coronary artery disease) Social History Smoking and tobacco status: never smoked Alcohol intake: never Marital status: / Marital status details: lost his 3 yrs ago Number of children: 3 service: Yes status: Retired Physical Exam Const: GENERAL APPEARANCE: cooperative and comfortable ORIENTATION/CONSCIOUSNESS: Yes awake, Yes oriented to person, Yes oriented to place and Yes oriented to time HENMT: COMMON NORMALS: normocephalic, atraumatic, hearing grossly normal bilaterally, external ears normal, EAC's normal, TM's normal bilaterally, Normal nasal mucous membranes and turbinates present, moist oral mucous membranes and oropharynx normal HEAD & SCALP: normocephalic and atraumatic NOSE: Normal nasal mucous membranes and turbinates present EXTERNAL EAR: Yes external ears normal EXTERNAL AUDITORY CANAL: EAC's normal TYMPANIC MEMBRANE: TM's normal bilaterally Eye: COMMON NORMALS: Equal, round and reactive pupils present, EOMs intact bilaterally, conjunctivae normal and no scleral icterus CONJUNCTIVA: Yes conjunctivae normal PUPIL: Yes Equal, round and reactive pupils present Neck/C-Spine: COMMON NORMALS: full ROM, no lymphadenopathy, supple and no JVD Lymph: LYMPHATIC: no lymphadenopathy noted and no lymphedema noted Resp: COMMON NORMALS: normal respiratory effort, No retractions, No use of accessory muscles and clear to auscultation bilaterally AUSCULTATION: clear to auscultation bilaterally Cardio: COMMON NORMALS: no JVD, regular rate, regular rhythm and No murmurs present (Cardio) RATE: regular rate RHYTHM: regular rhythm GI: COMMON NORMALS: Soft to palpation and No hepatosplenomegaly present AUSCULTATION: Yes normoactive bowel sounds PALPATION: Yes Soft to palpation, No Tenderness to palpation present (GI), No Guarding due to palpation present (GI) and Yes No hepatosplenomegaly present Extremity: COMMON NORMALS: normal to inspection, capillary refill normal, no clubbing, cyanosis or edema, no calf tenderness and no pedal edema Neuro: SENSORIUM/ORIENTATION: Yes oriented to person, Yes oriented to place and Yes oriented to time Skin: COMMON NORMALS: no rashes or lesions noted GENERAL SKIN EXAM: no rashes or lesions noted Course Vital Signs: Vital signs: Vital Signs Pulse Rate 70 07/29/22 15:02 Respiratory Rate 16 07/29/22 15:02 Blood Pressure 150/59 07/29/22 11:30 Pulse Oximetry 99 07/29/22 15:02 Oxygen Delivery Me thod 07/29/22 14:30 MDM - Abdominal Pain Medical Decision Making Chest x-ray and abdomen are negative remainder of his labs are unremarkable he is feeling fine he denies any other problems is still has no chest pain. We will go and discharge patient home follow-up with primary care as needed. Incidental finding of small gallbladder calculi did not appear to be germane to his presenting complaint. Medical Records I reviewed the patient's medical records. Lab Data I reviewed the patient's lab results. 07/29/22 10:30 07/29/22 10:30 Labs/Radiology: Radiology Impressions Abdomen/Pelvis CT 07/29/22 10:07 IMPRESSION: 1. Tiny gallbladder calculi. No gallbladder wall thickening or pericholecystic fluid. 2. Trace bilateral pleural fluid with compressive atelectasis in the lung bases. 3. Markedly enlarged prostate measuring 6.5 x 4.7 cm. Recommend correlation PSA. 4. No other acute findings. Chest X-Ray 07/29/22 10:07 Impression: Atherosclerosis. Laboratory Results WBC 7.9 10^3/uL (4.0-10.0) 07/29/22 10:30 RBC 5.30 10^6/uL (4.1-5.3) 07/29/22 10:30 Hgb 14.2 g/dL (11.7-16.6) 07/29/22 10:30 Hct 44.0 % (42.0-52.0) 07/29/22 10:30 MCV 83.0 fl (80-94) 07/29/22 10:30 MCH 26.8 pg (28.0-34.0) L 07/29/22 10:30 MCHC 32.3 g/dL (30.0-36.0) 07/29/22 10:30 RDW 15.4 % (12.1-15.1) H 07/29/22 10:30 Plt Count 145 10^3/cmm (130-400) 07/29/22 10:30 MPV 10.3 fL (7.4-10.4) 07/29/22 10:30 Neut % (Auto) 71.7 % 07/29/22 10:30 Lymph % (Auto) 17.2 % 07/29/22 10:30 [place] % (Auto) 5.1 % 07/29/22 10:30 Eos % (Auto) 4.9 % 07/29/22 10:30 Baso % (Auto) 0.6 % 07/29/22 10:30 Neut # (Auto) 5.65 10^3/uL (1.8-7.7) 07/29/22 10:30 Lymph # (Auto) 1.4 10^3/uL (0.8-4.8) 07/29/22 10:30 [place] # (Auto) 0.4 10^3/uL (0.2-0.9) 07/29/22 10:30 Eos # (Auto) 0.4 10^3/uL (0.0-0.8) 07/29/22 10:30 Baso # (Auto) 0.1 10^3/uL (0.0-0.1) 07/29/22 10:30 Nucleated RBC % (auto) 0 % 07/29/22 10:30 Nucleated RBCs # 0.0 /100WBC 07/29/22 10:30 Sodium 140 mmol/L (136-145) 07/29/22 10:30 Potassium 3.6 mmol/L (3.5-5.1) 07/29/22 10:30 Chloride 106 mmol/L (98-107) 07/29/22 10:30 Carbon Dioxide 23 mmol/L (22-29) 07/29/22 10:30 Anion Gap 14.6 (5-19) 07/29/22 10:30 BUN 13 mg/dL (8-23) 07/29/22 10:30 Creatinine 0.9 mg/dL (0.7-1.2) 07/29/22 10:30 GFR Calculation Not Reportable 07/29/22 10:30 Glucose 88 mg/dL (65-115) 07/29/22 10:30 Calculated Osmolality 290 mOsm/kg (285-295) 07/29/22 10:30 Lactic Acid 1.7 mmol/L (0.5-2.2) 07/29/22 10:30 Calcium 9.5 mg/dL (8.5-10.5) 07/29/22 10:30 Magnesium 2.2 mg/dL (1.7-2.3) 07/29/22 10:30 Total Bilirubin 0.6 mg/dL (0.15-1.2) 07/29/22 10:30 AST 30 U/L (0-40) 07/29/22 10:30 ALT 19 U/L (0-41) 07/29/22 10:30 Alkaline Phosphatase 131 U/L (40-130) H 07/29/22 10:30 Creatine Kinase 33 U/L (39-308) L 07/29/22 10:30 Total Protein 7.0 g/dL (6.6-8.7) 07/29/22 10:30 Albumin 4.0 g/dL (3.5-5.2) 07/29/22 10:30 Globulin 3.0 g/dL (1.3-4.6) 07/29/22 10:30 Lipase 12 U/L (13-60) L 07/29/22 10:30 Urine Color Yellow (Yellow) 07/29/22 11:54 Urine Appearance Hazy (CLEAR) A 07/29/22 11:54 Urine pH 8 (5-7) H 07/29/22 11:54 Ur Specific [place] 1.015 (1.005-1.030) 07/29/22 11:54 Urine Protein Neg (Negative) 07/29/22 11:54 Urine Glucose (UA) Norm (Normal) 07/29/22 11:54 Urine Ketones Negative (Negative) 07/29/22 11:54 Urine Blood Neg (Negative) 07/29/22 11:54 Urine Nitrate Negative (Negative) 07/29/22 11:54 Urine Bilirubin Neg (Negative) 07/29/22 11:54 Prot Sulfosalicylic Acd Negative (Negative) 07/29/22 11:54 Urine Urobilinogen Norm mg/dL (Negative) 07/29/22 11:54 Ur Leukocyte Esterase Negative (Negative) 07/29/22 11:54 Urine RBC None /hpf (0-2) 07/29/22 11:54 Urine WBC None /hpf (0-5) 07/29/22 11:54 Ur Squamous Epith Cells 0-4 /hpf (0-5) H 07/29/22 11:54 Amorphous Sediment 2+ /hpf 07/29/22 11:54 Urine Bacteria 4+ /hpf (NONE) H 07/29/22 11:54 Discharge Plan Discharge Patient Disposition: Home Clinical Impression: Abdominal pain Condition: Stable Prescriptions: No Action furosemide 20 mg Tablet 20 mg PO DAILY Calcium Magnesium + D 400-167-133 mg-mg-unit Tablet 1 tab PO DAILY calcium polycarbophil 300 mg PO DAILY multivitamin with folic acid [Thera] 400 mcg Tablet 1 tab PO DAILY Qty: 30 0RF amlodipine 5 mg Tablet 5 mg PO DAILY Qty: 30 0RF potassium chloride 20 mEq/15 mL Liquid 20 meq PO DAILY Qty: 1 0RF tamsulosin [Flomax] 0.4 mg Capsule 0.4 mg PO DAILY Qty: 30 0RF Rx Instructions: TAKE IN THE EVENING omeprazole 20 mg Capsule,Delayed Release(Dr/Ec) 20 mg PO DAILY Qty: 30 0RF albuterol sulfate 90 mcg/actuation Hfa Aerosol Inhaler 1 inh INHALATION QID PRN (Reason: Shortness Of Breath) Qty: 1 0RF cholecalciferol (vitamin D3) [Vitamin D3] 25 mcg (1,000 unit) Capsule 25 mcg PO DAILY Qty: 30 0RF pregabalin [Lyrica] 75 mg Capsule 75 mg PO BID 30 Days Qty: 60 0RF omega 1-mhd-iuc-fish oil [Fish Oil] 1,000 mg (120 mg-180 mg) Capsule 1 cap PO BID 30 Days Qty: 60 0RF Probiotic 10 billion cell Capsule 1 cell PO DAILY Qty: 30 0RF Discharge Orders: Discharge ED (Routine); Ordered 07/29/22 Ordered By: Enoc Nicole Referrals: Jerrica Melgar MD [Primary Care Provider] - Discharge Diet: Advance as tolerated Discharge Activity: Increase activity as tolerated Patient Instructions: Abdominal Pain (ED), Opioid Safety, Pain Management Activity Restrictions/Additional Instructions: You were seen today for abdominal pain and cough. Your chest x-ray was normal your CT abdomen was normal all your labs are normal. Suspect this is a viral mediated issue supportive cares and follow-up as needed. Coding Level of Care Code ED Marine Railway Operator for Kamran Fwd Exam Comprehensive
[2022-07-29 10:12] VITALS: BP 149/71; PULSE 71; O2SAT 97
[2022-07-29 10:39] LABS: Basophils # 0.1 10^3/uL (0.0-0.1); Basophils % 0.6 %; Eosinophils # 0.4 10^3/uL (0.0-0.8); Eosinophils % 4.9 %; Hemoglobin 14.2 g/dL (11.7-16.6); Lymphocytes # 1.4 10^3/uL (0.8-4.8); Lymphocytes % 17.2 %; Mean Corpuscular HGB Conc 32.3 g/dL (30.0-36.0); Mean Corpuscular Hemoglobin 26.8 pg (28.0-34.0); Mean Platelet Volume 10.3 fL (7.4-10.4); Monocytes # 0.4 10^3/uL (0.2-0.9); Monocytes % 5.1 %; Neutrophils # 5.65 10^3/uL (1.8-7.7); Neutrophils % 71.7 %; Nucleated Red Blood Cells % 0 %; Platelet Count 145 10^3/cmm (130-400); Red Cell Distribution Width 15.4 % (12.1-15.1); White Blood Count 7.9 10^3/uL (4.0-10.0)
[2022-07-29] MEDS: sodium chloride 0.9% 1,000 ML 999 ML IV (10:45)
[2022-07-29 11:10] LABS: Alanine Aminotransferase 19 U/L (0-41); Alkaline Phosphatase 131 U/L (40-130); Anion Gap 14.6 (5-19); Aspartate Amino Transferase 30 U/L (0-40); Blood Urea Nitrogen 13 mg/dL (8-23); Calcium 9.5 mg/dL (8.5-10.5); Carbon Dioxide 23 mmol/L (22-29); Chloride 106 mmol/L (98-107); Creatine Phosphokinase 33 U/L (39-308); Glucose 88 mg/dL (65-115); Lipase 12 U/L (13-60); Magnesium 2.2 mg/dL (1.7-2.3); Osmolality Calculated 290 mOsm/kg (285-295); Potassium 3.6 mmol/L (3.5-5.1); Sodium 140 mmol/L (136-145); Total Bilirubin 0.6 mg/dL (0.15-1.2)
[2022-07-29 11:11] LABS: Lactic Sepsis W/Reflex 1.7 mmol/L (0.5-2.2)
[2022-07-29 11:30] VITALS: BP 150/59
[2022-07-29 12:00] VITALS: PULSE 70; RESP 16; O2SAT 94
[2022-07-29 12:32] LABS: Add Urine Microscopic? YES; Bilirubin Urine Neg (Negative); Blood Urine Neg (Negative); Glucose Urine UA Norm (Normal); Ketones Urine Negative (Negative); Leukocyte Esterase Urine Negative (Negative); Nitrate Urine Negative (Negative); Protein Urine Neg (Negative); Specific Gravity, Urine 1.015 (1.005-1.030); Sulfosalicylic Acid Urine Negative (Negative); Urine Appearance Hazy (CLEAR); Urine Color Yellow (Yellow); Urobilinogen Urine Norm (Negative); pH Urine 8 (5-7)
[2022-07-29 12:33] LABS: Add Urine Culture? Yes; Amorphous Sediment Urine 2+ /hpf; Bacteria Urine 4+ /hpf; Squamous Epithelial Cell Urine 0-4 /hpf (0-5)
[2022-07-29 14:30] VITALS: PULSE 70; O2SAT 98
[2022-07-29 15:02] VITALS: PULSE 70; RESP 16; O2SAT 99
== END 2022-07-29 16:35 | disposition home or self-care (01) ==
PROVIDERS: Emergency Provider Family Medicine; PCP Family Medicine
DX: R10.9 Unspecified abdominal pain (principal); K80.20 Calculus of gallbladder without cholecystitis without obstruction; I25.10 Atherosclerotic heart disease of native coronary artery without angina pectoris; I11.0 Hypertensive heart disease with heart failure; I50.30 Unspecified diastolic (congestive) heart failure
CPT/HCPCS: 71045; 74176; 80053; 81001; 82550; 83605; 83690; 83735; 85025; 87086; 93005; 96360; 99285; J7030